=== PATIENT | female | born 1950 ===

== ENCOUNTER 2022-06-16 14:39 | Inpatient (IN) | payer OTHER, SELFPAY ==
--- NOTE | 2022-06-16 16:43 | PC.NURSE ---
Pt arrived to the unit via stretcher from [facility]. Pt stated I haven't slept in two months, I have a concussion , when she was being escorted onto the unit. Pt refused to sign a CV, Dr. Ndiaye signed a 12b for the pt. Pt oriented to the unit, pt sat at the table with her head down and refused to participate with admission assessment/paperwork at this time. The pt went into her bedroom and stated I just want you to leave me alone now . The pt appears to be oriented to self only at this time.
--- NOTE | 2022-06-17 10:28 | HO.PSYADMNOT ---
HPI Date of Service: 06/17/22 Chief Complaint: psychosis hallucinations threatening behavior Sources of Information: patient interviewed and crisis/core team assessment reviewed Additional Sources of Information: Patient is guarded only giving limited information HPI Subjective Notes: [place] Warning and Section 12B Narrative: The patient is a 71-year-old female referred by the O crisis team she had been [facility] which she states she has been in since September. The patient states she had had a long-term hospitalization from May to September on the psychiatric unit in [place]. The patient is unable or unwilling to give a clear psychiatric history. She does state that she has suffered from psychiatric attacks but then will not elaborate. She states antipsychotic medication has not generally been helpful and that she has had significant side effects. She does relate that helpful gave her significant tremors and olanzapine which she took generally at bedtime also was problematic. Details are not known regarding reported admission at [facility]. Patient reportedly had been aggressive threatening and made suicidal statements at respite was then evaluated by the crisis team and referred patient denies that she had had any problematic behavior she is hoping to go back to [facility] and hoping to return to some form of [facility] housing which she had been in before. Reportedly she had been evicted from some form of senior housing prior to the [facility] admission she is unable to give clear details. She reportedly has not been taking medication for the past 2 and half months Past Psychiatric History: Bertha she believes from this psychic attacks. She has been psychiatrically hospitalized in the past was on Haldol and olanzapine reportedly details in response not clear ent states she has a history of anxiety and trauma it appears Medical Evaluation Reviewed: Hospitalist Jammie Knight Patient reportedly has a history of hypertension was on amlodipine hypothyroidism was on levothyroxine denies any current symptoms except for headache [facility] Medical History (Updated 06/17/22 @ 19:45 by Alex Ndiaye MD) Essential (primary) hypertension Hypothyroid Narrative: htn hypothyroidism Family History: unclear Social History: Patient use to work for 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 she states she was living and over 55 housing until she was hospitalized in May she states she has no close supports that she has 1 child Substance History: not known Trauma History: Unable to determine Meds/Allergies Meds Home Medications Medication Instructions Recorded Confirmed Type amlodipine 5 mg tablet 5 mg PO DAILY 06/16/22 06/16/22 History cholecalciferol (vitamin D3) 50 50 mcg PO DAILY 06/16/22 06/16/22 History mcg (2,000 unit) capsule (Vitamin D3) cranberry 500 mg capsule 500 mg PO BID 06/16/22 06/16/22 History diphenhydramine HCl 25 mg capsule 25 mg PO BEDTIME 06/16/22 06/16/22 History (Benadryl) ferrous sulfate 324 mg (65 mg 324 mg PO DAILY 06/16/22 06/16/22 History iron) tablet,delayed release levothyroxine 150 mcg tablet 150 mcg PO DAILY 06/16/22 06/16/22 History lorazepam 0.5 mg tablet 0.5 mg PO BID 06/16/22 06/16/22 History melatonin 5 mg tablet 10 mg PO BEDTIME 06/16/22 06/16/22 History olanzapine 10 mg tablet 10 mg PO BID 06/16/22 06/16/22 History Allergies Allergies Allergy/AdvReac Type Severity Reaction Status Date / Time risperidone AdvReac Intermediate Hypotension Verified 06/16/22 15:00 fluoxetine [From Prozac] AdvReac Agitated Verified 06/16/22 15:00 Mental Status Exam Mental Status Exam Narrative: Patient initially would not talk with this lead technical writer adamantly stating she does not need to be in a psychiatric hospital. Was explained again that she was admitted on a Section 12 B and I did explain spoke with me about could be used in a court hearing patient adamantly denied any thoughts of harm to herself for others she vaguely made a reference to psychiatric intact denied making threats to staff address bed or threats to harm herself denied having commands in her mind telling her to do anything. She does state that she has anxiety and has stated that Ativan could be helpful no coat gross paranoia no threats her mood was flat restricted somewhat anxious denied harm to herself or others insight judgment impaired when asked about why she had been refusing all medication she can not not really explain except that Haldol had given her significant side effects tremor and pain and did states she was open to treatment for hypertension and hypothyroidism Assessment & Plan Assessment & Plan (1) Schizo-affective schizophrenia, chronic condition with acute exacerbation: Status: Acute Code(s): F25.9 - Schizoaffective disorder, unspecified (2) Essential (primary) hypertension: Status: Acute Code(s): I10 - Essential (primary) hypertension (3) Hypothyroid: Status: Acute Code(s): E03.9 - Hypothyroidism, unspecified Plan Patient with reported history of psychosis has been noncompliant with medication reportedly for 2 and half months. Was reportedly threatening to harm herself and others and acting in an aggressive manner. She is admitted on a Section 12 B lorazepam 0.5 mg p.o. q.6h Need additional history clarify recent events assess safety and to need to file for retention and tx order Patient educated on: diagnosis and medication risk/benefits Informed Consent: further education needed Reason for continued inpatient stay Substantial Risk for: harm to self and harm to others Statement Statement: I have reviewed the history and physical and performed a pertinent examination on my patient. No changes have occurred unless specified. Hospitalist consult ordered her restarted amlodipine for hypertension
[2022-06-18 06:00] VITALS: BP 131/88; PULSE 93; RESP 18; TEMP 36.6; O2SAT 96
[2022-06-18] MEDS: amLODIPine Besylate 2.5 MG TABLET PO (10:37)
[2022-06-18] MEDS: LORazepam 0.5 MG TABLET PO ×3 (11:28→21:54)
--- NOTE | 2022-06-18 12:30 | P.PNPSI_ITS ---
Subjective Subjective Date of Service: 06/18/22 Reason For Visit: psychosis hallucinations threatening behavior Subjective Notes: Section 12B Interim History: The nursing staff reported the patient has refused vital signs and she has been seen in the common units. She has refused all her medications, including Zyprexa at night. On interview the patient reported that she had some psychiatric admissions and treatment but she does not need medications. She does not have any insight into her condition. She signed a CV, she states that she doesn't have a psychiatric problem. Mental Status Exam Mental Status Exam Patient Appearance: Appropriate Patient Orientation: Person and Situation Level of Consciousness: Awake and Appropriate Patient Behavior: Guarded, Passive and Suspicious Mood Description: Withdrawn Affect Description: Labile Patient Cognition Impaired: Yes Ability to Follow Directions: Good Speech Pattern: Clear Hallucinations: None Delusions: Paranoid Ideation and Ideas of Reference Thought Process: Illogical and Distracted Thought Content: positive for [place], positive for Poverty of Content and positive for Thought Blocking Judgement: Poor Diagnostics Vital Signs (24Hr): Vital Signs - 24 hr 06/18/22 06:00 Temperature 97.9 F Pulse Rate 93 Respiratory Rate 18 Blood Pressure 131/88 Pulse Oximetry 96 Oxygen Delivery Method Room Air Labs Results: 06/18/22 14:16 Medications Medications Current Medications Acetaminophen (Acetaminophen 325 Mg Tablet) 650 mg PO Q6H PRN PRN Reason: Headache/Pain Mild Scale (1-3) Al Hydroxide/Mg Hydroxide (Magnesium Hydrox/Alum Hydrox 30 Ml Oral.Susp) 30 ml PO Q6H PRN PRN Reason: Heartburn/Nausea Amlodipine Besylate (Amlodipine Besylate 2.5 Mg Tablet) 2.5 mg PO DAILY [facility]; Protocol Last Admin: 06/18/22 10:37 Dose: 2.5 mg Hydroxyzine HCl (Hydroxyzine Hcl 25 Mg Tablet) 25 mg PO Q6H PRN PRN Reason: Anxiety Latanoprost (Latanoprost 0.005 % Ophth [place] 2.5 Ml Drops) 1 drop EYE-BOTH BEDTIME [facility] Last Admin: 06/17/22 21:49 Dose: Not Given Levothyroxine Sodium (Levothyroxine Sodium 50 Mcg Tablet) 50 mcg PO DAILY@0600 [facility] Last Admin: 06/18/22 05:51 Dose: Not Given Lorazepam (Lorazepam 0.5 Mg Tablet) 0.5 mg PO Q8H PRN PRN Reason: Anxiety Last Admin: 06/18/22 11:28 Dose: 0.5 mg Magnesium Hydroxide (Milk Of Magnesia 30 Ml Oral.Susp) 30 ml PO DAILY PRN PRN Reason: Constipation Olanzapine (Olanzapine 2.5 Mg Tablet) 2.5 mg PO BEDTIME [facility] Last Admin: 06/17/22 21:49 Dose: Not Given Allergies Allergies Allergy/AdvReac Type Severity Reaction Status Date / Time risperidone AdvReac Intermediate Hypotension Verified 06/16/22 15:00 fluoxetine [From Prozac] AdvReac Agitated Verified 06/16/22 15:00 Assessment & Plan Assessment & Plan (1) Schizo-affective schizophrenia, chronic condition with acute exacerbation: Status: Acute Code(s): F25.9 - Schizoaffective disorder, unspecified (2) Essential (primary) hypertension: Status: Acute Code(s): I10 - Essential (primary) hypertension (3) Hypothyroid: Status: Acute Code(s): E03.9 - Hypothyroidism, unspecified Plan Patient with reported history of psychosis has been noncompliant with medication reportedly for 2 and half months. Was reportedly threatening to harm herself and others and acting in an aggressive manner. She is admitted on a Section 12 B lorazepam 0.5 mg p.o. q.6h Need additional history clarify recent events assess safety and to need to file for retention and tx order Plan 1. Continue with Zyprexa 2.5 p.o. q.h.s. to target psychosis. 2. Gather collateral information. 3. We will probably is filed for Section 7 and 8 since the patient has a long history of similar presentations that makes her and safe in the community. I will not accept her CV at this moment since she is refusing actively antipsychotics. I spent ___20___ minutes with the patient and/or on the patient floor today, greater than?50% of which was spent counseling/coordinating care. Informed Consent: does not understand Reason for contiued inpatient stay Substantial Risk for: harm to self, harm to others, inability to function, rapid decompensation and med/psych decompensation Time Spent With Patient Time: Total time managing care of this patient today __20__ minutes.
--- NOTE | 2022-06-18 13:03 | P.CONHOSP_ITS ---
History of Present Illness Data of Consult Service Date: 06/18/22 Requesting physician: Alex Ndiaye Primary Care Provider: Unknown Physician HPI Reason for consult: medical H&P 71-year-old female with history of CKD stage 4, history of breast cancer, history of vaginal cancer, hypertension, fibromyalgia, glaucoma, COPD, and history of UTIs admitted to Psychiatry for schizophrenia with psychosis from [facility] ED with consult placed to Medicine for medical H and P. Patient is reporting chronic pain has been ongoing for years exacerbated recently due to stress surrounding homelessness. She is primarily complaining of pain and tightness in the jaw, neck, head, face. She states she has taken oxycodone for this in the past and is requesting this. She states her stomach is upset/dyspepsia due to her stress. She has no other complaints at this time. Reports smoking several natural cigarettes daily with occassional ETOH consumption. No illicit drug use. Review of Systems Review of Systems: General: No fevers, malaise, unintentional weight loss HEENT: No blurred vision, diplopia. No sore throat, nasal congestion, rhinorrhea, sinus pain, ear pain Cardiovascular: No chest pain, palpitations, or leg edema Respiratory: No shortness of breath, wheezing, cough GI: +dyspepsia. No abdominal pain, nausea, vomiting, diarrhea, constipation, melena, hematochezia : No dysuria, hematuria, increased urinary frequency, decreased urinary output MSK: No myalgia, back pain Neuro: No headaches, weakness, paresthesias Skin: No rashes or lesions [facility] Medical History (Updated 06/18/22 @ 13:12 by DANNY Liu) CKD (chronic kidney disease), stage IV Essential (primary) hypertension Fibromyalgia Glaucoma History of breast cancer History of UTI History of vaginal after Hypothyroid Schizoaffective schizophrenia Family History (Updated 06/18/22 @ 13:11 by DANNY Liu) Father MS (myocardial infarction) Mother Lung cancer Smoker Social History Household Members: Other Household Members Other:: Pt currently living at respite Housing: Other Housing Other:: respite Do you presently have visiting nurse or other home services: No Unable to assess alcohol history related to: Refusing to respond Patient Tobacco Use Status: Tobacco use Unknown Use of substances other than those prescribed or required for medical reasons: Unknown Currently Displaying Signs/Symptoms of Drug Intoxication Withdrawal: No Advance Directives: No Advance Directives Information Provided: No Do you have thoughts of harming others: None Do you have a plan to hurt others: No Plan Patient : No : No Poor oral hygiene: No service: No Sexual orientation: Straight/Heterosexual Meds Allergies Allergy/AdvReac Type Severity Reaction Status Date / Time risperidone AdvReac Intermediate Hypotension Verified 06/16/22 15:00 fluoxetine [From Prozac] AdvReac Agitated Verified 06/16/22 15:00 Active Medications: Current Medications Acetaminophen (Acetaminophen 325 Mg Tablet) 650 mg PO Q6H PRN PRN Reason: Headache/Pain Mild Scale (1-3) Al Hydroxide/Mg Hydroxide (Magnesium Hydrox/Alum Hydrox 30 Ml Oral.Susp) 30 ml PO Q6H PRN PRN Reason: Heartburn/Nausea Amlodipine Besylate (Amlodipine Besylate 2.5 Mg Tablet) 2.5 mg PO DAILY [facility]; Protocol Last Admin: 06/18/22 10:37 Dose: 2.5 mg Diphenhydramine HCl (Diphenhydramine Hcl 25 Mg Capsule) 25 mg PO BEDTIME [facility] Ferrous Sulfate (Ferrous Sulfate 324 Mg Tablet.Dr) 324 mg PO DAILY [facility] Gabapentin (Gabapentin 300 Mg Capsule) 300 mg PO BEDTIME [facility] Hydroxyzine HCl (Hydroxyzine Hcl 25 Mg Tablet) 25 mg PO Q6H PRN PRN Reason: Anxiety Latanoprost (Latanoprost 0.005 % Ophth [place] 2.5 Ml Drops) 1 drop EYE-BOTH BEDTIME [facility] Last Admin: 06/17/22 21:49 Dose: Not Given Levothyroxine Sodium (Levothyroxine Sodium 50 Mcg Tablet) 50 mcg PO DAILY@0600 [facility] Last Admin: 06/18/22 05:51 Dose: Not Given Levothyroxine Sodium (Levothyroxine Sodium 150 Mcg Tablet) 150 mcg PO DAILY [facility] Lorazepam (Lorazepam 0.5 Mg Tablet) 0.5 mg PO Q8H PRN PRN Reason: Anxiety Last Admin: 06/18/22 11:28 Dose: 0.5 mg Lorazepam (Lorazepam 0.5 Mg Tablet) 0.5 mg PO BID [facility] Magnesium Hydroxide (Milk Of Magnesia 30 Ml Oral.Susp) 30 ml PO DAILY PRN PRN Reason: Constipation Melatonin (Melatonin 3 Mg Tablet) 9 mg PO BEDTIME [facility] Nicotine Polacrilex (Nicotine Polacrilex 2 Mg Gum) 2 mg BUCCAL Q2H PRN PRN Reason: smoking craving Olanzapine (Olanzapine 2.5 Mg Tablet) 2.5 mg PO BEDTIME [facility] Last Admin: 06/17/22 21:49 Dose: Not Given Home Medications Medication Instructions Recorded Confirmed Last Taken Type amlodipine 5 mg tablet 5 mg PO DAILY 06/16/22 06/16/22 Unknown History cholecalciferol (vitamin D3) 50 50 mcg PO DAILY 06/16/22 06/16/22 Unknown History mcg (2,000 unit) capsule (Vitamin D3) cranberry 500 mg capsule 500 mg PO BID 06/16/22 06/16/22 Unknown History diphenhydramine HCl 25 mg capsule 25 mg PO BEDTIME 06/16/22 06/16/22 Unknown History (Benadryl) ferrous sulfate 324 mg (65 mg 324 mg PO DAILY 06/16/22 06/16/22 Unknown History iron) tablet,delayed release levothyroxine 150 mcg tablet 150 mcg PO DAILY 06/16/22 06/16/22 Unknown History lorazepam 0.5 mg tablet 0.5 mg PO BID 06/16/22 06/16/22 Unknown History melatonin 5 mg tablet 10 mg PO BEDTIME 06/16/22 06/16/22 Unknown History olanzapine 10 mg tablet 10 mg PO BID 06/16/22 06/16/22 Unknown History Physical Exam Vital Signs and Narrative: Vital Signs: Last Vital Signs Temp 97.9 F 06/18/22 06:00 Pulse 93 06/18/22 06:00 Resp 18 06/18/22 06:00 BP 131/88 06/18/22 06:00 Pulse Ox 96 06/18/22 06:00 O2 Del Method 06/18/22 06:00 Patient not agreeing to exam Assessment and Plan (1) Routine medical exam: Status: Acute Plan 71-year-old female with history of CKD stage 4, history of breast cancer, history of vaginal cancer, hypertension, fibromyalgia, glaucoma, COPD, and history of UTIs admitted to Psychiatry for schizophrenia with psychosis from [facility] with consult placed to Medicine for medical H and P. # schizoaffective schizophrenia -plan per Psychiatry # fibromyalgia -reporting recently exacerbated pain in head, neck, jaw -would not recommend narcotics -gabapentin 300 mg at bedtime ordered -Can also try low dose muscle relaxer like tizanidine -ibuprofen or Tylenol as needed # hypertension-controlled -continue amlodipine daily # hypothyroidism -continue levothyroxine 150mcg daily -TSH ordered #Glaucoma -Continue eye drops #COPD - no acute exacerbation -Noted on [facility] records -Albuterol prn #History breast CA, History vaginal CA -No chemotherapy or immunotherapy -Hx radiation -Outpt follow up #History UTIs -Pt asymptomatic #CKD stage 4 -Noted in [facility] record -Check BMP Pt was not agreeing to physical exam. Thank you for allowing me to participate in this consult. Signing off at this time. Please do not hesitate to call for further questions. Time Spent With Patient Time: Total time managing care of this patient today ____ minutes.
--- NOTE | 2022-06-18 13:19 | PC.NURSE ---
Pt. declines influenza vaccine at this time.
--- NOTE | 2022-06-18 13:51 | PC.NURSE ---
Pt. is a smoker. Order for nicotine replacement received. Consult fro OT for smoking cessation ordered.
[2022-06-18] MEDS: Nicotine Polacrilex 2 MG GUM BUCCAL (14:22)
[2022-06-18 14:47] LABS: Anion Gap 14 (12-20); Blood Urea Nitrogen 19 mg/dL (9-16); Calcium 9.6 mg/dL (8.4-10.2); Carbon Dioxide 27 mmol/L (22-29); Chloride 101 mmol/L (96-108); Estimated Glomerular Filt Rate 41; Glucose Random 122 mg/dL (60-115); Potassium 4.6 mmol/L (3.3-5.1); Sodium 137 mmol/L (135-145)
[2022-06-18 15:30] LABS: TSH reflex Free T4 14.62 uIU/mL (0.32-4.0)
[2022-06-18 16:13] LABS: Free T4 (Free Thyroxine) 0.84 ng/dL (0.71-1.85)
[2022-06-18] MEDS: OLANZapine 2.5 MG TABLET PO (21:53)
[2022-06-18] MEDS: Acetaminophen 325 MG TABLET 650 MG PO (21:53)
[2022-06-18 21:54] VITALS: BP 172/72; PULSE 68; RESP 14; TEMP 36.6; O2SAT 96
[2022-06-18] MEDS: Melatonin 3 MG TABLET 9 MG PO (21:54)
[2022-06-18 22:30] VITALS: BP 148/58; PULSE 60; RESP 16; O2SAT 96
[2022-06-19 06:00] VITALS: BP 168/81; PULSE 62; RESP 14; TEMP 36.6; O2SAT 94
[2022-06-19] MEDS: Levothyroxine Sodium 50 MCG TABLET PO (06:08)
[2022-06-19] MEDS: amLODIPine Besylate 2.5 MG TABLET PO (08:08)
[2022-06-19] MEDS: Ferrous Sulfate 324 MG TABLET.DR PO (08:08)
[2022-06-19] MEDS: LORazepam 0.5 MG TABLET PO ×3 (08:09→20:31)
--- NOTE | 2022-06-19 11:33 | HO.PSYCHPN ---
Subjective Subjective Date of Service: 06/19/22 Reason For Visit: psychosis hallucinations threatening behavior Subjective Notes: Conditional Voluntary Interim History: The nursing staff reported the patient took Zyprexa last night. His blood pressure was slightly high but then later on it lowered she complained of headaches and took Tylenol. She was for Motrin instead of Tylenol. We could not collect a urine sample yet she remains guarded stating that which is are controlling her face. He asked for oxycodone and Ativan only. Yesterday she signed a conditional voluntary and she has refused to sign releases. We will be approach today. So far she has been compliant with Zyprexa for 1 day. We will discuss with the patient that 1 of the conditions of discharge is compliance with treatment. On interview, she was worried about her belongings on [facility] and the ED of the other hospital Mental Status Exam Mental Status Exam Patient Appearance: Well Grooomed and Appropriate Patient Orientation: Person and Situation Level of Consciousness: Awake and Appropriate Patient Behavior: Guarded and Passive Mood Description: Withdrawn Affect Description: Constricted Patient Cognition Impaired: Yes Ability to Follow Directions: Good Speech Pattern: Clear Hallucinations: Auditory Delusions: Paranoid Ideation, Ideas of Reference and Bizarre Thought Process: Distracted Thought Content: positive for Disoriented and positive for [place] Judgement: Fair Diagnostics Vital Signs (24Hr): Vital Signs - 24 hr 06/18/22 21:54 06/18/22 22:30 06/19/22 06:00 Temperature 97.9 F 97.9 F Pulse Rate 68 60 62 Respiratory Rate 14 16 14 Blood Pressure 172/72 H 148/58 H 168/81 H Pulse Oximetry 96 96 94 Oxygen Delivery Method Room Air Room Air Room Air Labs Results: 06/18/22 14:16 Labs: Laboratory Results - last 48 hr 06/18/22 14:16 Sodium 137 Potassium 4.6 Chloride 101 Carbon Dioxide 27 Anion Gap 14 BUN 19 H Creatinine 1.29 Estim Creat Clear Calc TNP Estimated GFR 41 Random Glucose 122 H Calcium 9.6 TSH 14.62 H Free T4 0.84 Medications Medications Current Medications Acetaminophen (Acetaminophen 325 Mg Tablet) 650 mg PO Q6H PRN PRN Reason: Headache/Pain Mild Scale (1-3) Last Admin: 06/18/22 21:53 Dose: 650 mg Al Hydroxide/Mg Hydroxide (Magnesium Hydrox/Alum Hydrox 30 Ml Oral.Susp) 30 ml PO Q6H PRN PRN Reason: Heartburn/Nausea Amlodipine Besylate (Amlodipine Besylate 2.5 Mg Tablet) 2.5 mg PO DAILY [facility]; Protocol Last Admin: 06/19/22 08:08 Dose: 2.5 mg Diphenhydramine HCl (Diphenhydramine Hcl 25 Mg Capsule) 25 mg PO BEDTIME [facility] Last Admin: 06/18/22 22:06 Dose: Not Given Ferrous Sulfate (Ferrous Sulfate 324 Mg Tablet.Dr) 324 mg PO DAILY [facility] Last Admin: 06/19/22 08:08 Dose: 324 mg Gabapentin (Gabapentin 300 Mg Capsule) 300 mg PO BEDTIME [facility] Last Admin: 06/18/22 22:06 Dose: Not Given Hydroxyzine HCl (Hydroxyzine Hcl 25 Mg Tablet) 25 mg PO Q6H PRN PRN Reason: Anxiety Latanoprost (Latanoprost 0.005 % Ophth [place] 2.5 Ml Drops) 1 drop EYE-BOTH BEDTIME [facility] Last Admin: 06/18/22 22:06 Dose: Not Given Levothyroxine Sodium (Levothyroxine Sodium 50 Mcg Tablet) 50 mcg PO DAILY@0600 [facility] Last Admin: 06/19/22 06:08 Dose: 50 mcg Levothyroxine Sodium (Levothyroxine Sodium 150 Mcg Tablet) 150 mcg PO DAILY [facility] Lorazepam (Lorazepam 0.5 Mg Tablet) 0.5 mg PO Q8H PRN PRN Reason: Anxiety Last Admin: 06/18/22 21:54 Dose: 0.5 mg Lorazepam (Lorazepam 0.5 Mg Tablet) 0.5 mg PO BID [facility] Last Admin: 06/19/22 08:09 Dose: 0.5 mg Magnesium Hydroxide (Milk Of Magnesia 30 Ml Oral.Susp) 30 ml PO DAILY PRN PRN Reason: Constipation Melatonin (Melatonin 3 Mg Tablet) 9 mg PO BEDTIME [facility] Last Admin: 06/18/22 21:54 Dose: 9 mg Nicotine Polacrilex (Nicotine Polacrilex 2 Mg Gum) 2 mg BUCCAL Q2H PRN PRN Reason: smoking craving Last Admin: 06/18/22 14:22 Dose: 2 mg Olanzapine (Olanzapine 2.5 Mg Tablet) 2.5 mg PO BEDTIME [facility] Last Admin: 06/18/22 21:53 Dose: 2.5 mg Allergies Allergies Allergy/AdvReac Type Severity Reaction Status Date / Time risperidone AdvReac Intermediate Hypotension Verified 06/16/22 15:00 fluoxetine [From Prozac] AdvReac Agitated Verified 06/16/22 15:00 Assessment & Plan Assessment & Plan (1) Schizo-affective schizophrenia, chronic condition with acute exacerbation: Status: Acute Code(s): F25.9 - Schizoaffective disorder, unspecified (2) Essential (primary) hypertension: Status: Acute Code(s): I10 - Essential (primary) hypertension (3) Hypothyroid: Status: Acute Code(s): E03.9 - Hypothyroidism, unspecified Plan Patient with reported history of psychosis has been noncompliant with medication reportedly for 2 and half months. Was reportedly threatening to harm herself and others and acting in an aggressive manner. She is admitted on a Section 12 B lorazepam 0.5 mg p.o. q.6h Need additional history clarify recent events assess safety and to need to file for retention and tx order Plan 1. Continue with Zyprexa 2.5 p.o. q.h.s. to target psychosis. 2. Gather collateral information. 3. We will probably is filed for Section 7 and 8 since the patient has a long history of similar presentations that makes her and safe in the community. I will not accept her CV if she refuses antipsychotics. I spent minutes with the patient and/or on the patient floor today, greater than?50% of which was spent counseling/coordinating care. Reason for contiued inpatient stay Substantial Risk for: inability to function, rapid decompensation and med/psych decompensation Time Spent With Patient Time: Total time managing care of this patient today __20__ minutes.
[2022-06-19 18:00] VITALS: BP 133/60; PULSE 60; RESP 16; TEMP 36.5; O2SAT 95
[2022-06-19] MEDS: Latanoprost 0.005 % Ophth Sol 2.5 ML DROPS 1 DROP EYE-BOTH (20:29)
[2022-06-19] MEDS: Melatonin 3 MG TABLET 9 MG PO (20:31)
[2022-06-19] MEDS: OLANZapine 2.5 MG TABLET PO (20:32)
[2022-06-20] MEDS: Levothyroxine Sodium 50 MCG TABLET PO (06:10)
[2022-06-20 07:30] VITALS: BP 150/84; PULSE 96; RESP 17; TEMP 36.2; O2SAT 97
[2022-06-20] MEDS: LORazepam 0.5 MG TABLET PO ×2 (09:48→21:19)
[2022-06-20] MEDS: Ferrous Sulfate 324 MG TABLET.DR PO (09:48)
[2022-06-20] MEDS: amLODIPine Besylate 2.5 MG TABLET PO (09:48)
--- NOTE | 2022-06-20 10:34 | HO.PSYCHPN ---
Subjective Subjective Date of Service: 06/20/22 Reason For Visit: psychosis hallucinations threatening behavior Subjective Notes: Conditional Voluntary Interim History: The nursing staff reported the patient took Zyprexa last night. The she had been seen in the common areas walking, paranoid and internally preoccupied. The occupational therapist reported that she score 5.0 on the Chris test and 16/30 on the [place]. The social media strategist approached yesterday and she refused to sign releases since she was paranoid. She is worried about missing her clothes and her belongings that are at respite. On interview I explained the patient that in order to discharge her and make this admission short, we will require compliance with antipsychotics. Mental Status Exam Mental Status Exam Patient Appearance: Well Grooomed Patient Orientation: Person and Situation Level of Consciousness: Awake and Appropriate Patient Behavior: Guarded and Passive Mood Description: Suspicious and Withdrawn Affect Description: Constricted Patient Cognition Impaired: Yes Ability to Follow Directions: Good Speech Pattern: Clear and Long Pauses Hallucinations: None Delusions: Paranoid Ideation and Ideas of Reference Thought Process: Distracted and Evasive Thought Content: positive for [place] and positive for [place] Judgement: Poor Diagnostics Vital Signs (24Hr): Vital Signs - 24 hr 06/19/22 18:00 Temperature 97.7 F Pulse Rate 60 Respiratory Rate 16 Blood Pressure 133/60 Pulse Oximetry 95 Oxygen Delivery Method Room Air Labs Results: 06/18/22 14:16 Labs: Laboratory Results - last 48 hr 06/18/22 14:16 Sodium 137 Potassium 4.6 Chloride 101 Carbon Dioxide 27 Anion Gap 14 BUN 19 H Creatinine 1.29 Estim Creat Clear Calc TNP Estimated GFR 41 Random Glucose 122 H Calcium 9.6 TSH 14.62 H Free T4 0.84 Medications Medications Current Medications Acetaminophen (Acetaminophen 325 Mg Tablet) 650 mg PO Q6H PRN PRN Reason: Headache/Pain Mild Scale (1-3) Last Admin: 06/18/22 21:53 Dose: 650 mg Al Hydroxide/Mg Hydroxide (Magnesium Hydrox/Alum Hydrox 30 Ml Oral.Susp) 30 ml PO Q6H PRN PRN Reason: Heartburn/Nausea Amlodipine Besylate (Amlodipine Besylate 2.5 Mg Tablet) 2.5 mg PO DAILY [facility]; Protocol Last Admin: 06/20/22 09:48 Dose: 2.5 mg Diphenhydramine HCl (Diphenhydramine Hcl 25 Mg Capsule) 25 mg PO BEDTIME [facility] Last Admin: 06/19/22 20:35 Dose: Not Given Ferrous Sulfate (Ferrous Sulfate 324 Mg Tablet.Dr) 324 mg PO DAILY [facility] Last Admin: 06/20/22 09:48 Dose: 324 mg Gabapentin (Gabapentin 300 Mg Capsule) 300 mg PO BEDTIME [facility] Last Admin: 06/19/22 20:34 Dose: Not Given Hydroxyzine HCl (Hydroxyzine Hcl 25 Mg Tablet) 25 mg PO Q6H PRN PRN Reason: Anxiety Latanoprost (Latanoprost 0.005 % Ophth [place] 2.5 Ml Drops) 1 drop EYE-BOTH BEDTIME [facility] Last Admin: 06/19/22 20:29 Dose: 1 drop Levothyroxine Sodium (Levothyroxine Sodium 150 Mcg Tablet) 150 mcg PO DAILY [facility] Last Admin: 06/20/22 09:48 Dose: Not Given Lorazepam (Lorazepam 0.5 Mg Tablet) 0.5 mg PO Q8H PRN PRN Reason: Anxiety Last Admin: 06/19/22 15:22 Dose: 0.5 mg Lorazepam (Lorazepam 0.5 Mg Tablet) 0.5 mg PO BID [facility] Last Admin: 06/20/22 09:48 Dose: 0.5 mg Magnesium Hydroxide (Milk Of Magnesia 30 Ml Oral.Susp) 30 ml PO DAILY PRN PRN Reason: Constipation Melatonin (Melatonin 3 Mg Tablet) 9 mg PO BEDTIME [facility] Last Admin: 06/19/22 20:31 Dose: 9 mg Nicotine Polacrilex (Nicotine Polacrilex 2 Mg Gum) 2 mg BUCCAL Q2H PRN PRN Reason: smoking craving Last Admin: 06/18/22 14:22 Dose: 2 mg Olanzapine (Olanzapine 2.5 Mg Tablet) 2.5 mg PO BEDTIME [facility] Last Admin: 06/19/22 20:32 Dose: 2.5 mg Allergies Allergies Allergy/AdvReac Type Severity Reaction Status Date / Time risperidone AdvReac Intermediate Hypotension Verified 06/16/22 15:00 fluoxetine [From Prozac] AdvReac Agitated Verified 06/16/22 15:00 Assessment & Plan Assessment & Plan (1) Schizo-affective schizophrenia, chronic condition with acute exacerbation: Status: Acute Code(s): F25.9 - Schizoaffective disorder, unspecified (2) Essential (primary) hypertension: Status: Acute Code(s): I10 - Essential (primary) hypertension (3) Hypothyroid: Status: Acute Code(s): E03.9 - Hypothyroidism, unspecified Plan Patient with reported history of psychosis has been noncompliant with medication reportedly for 2 and half months. Was reportedly threatening to harm herself and others and acting in an aggressive manner. She is admitted on a Section 12 B lorazepam 0.5 mg p.o. q.6h Need additional history clarify recent events assess safety and to need to file for retention and tx order Plan 1. Continue with Zyprexa 2.5 p.o. q.h.s. to target psychosis. 2. Gather collateral information. 3. We will probably is filed for Section 7 and 8 since the patient has a long history of similar presentations that makes her and safe in the community. I will not accept her CV if she refuses antipsychotics. So far, she has been compliant with Zyprexa I spent ___20___ minutes with the patient and/or on the patient floor today, greater than?50% of which was spent counseling/coordinating care. Reason for contiued inpatient stay Substantial Risk for: inability to function, rapid decompensation and med/psych decompensation Time Spent With Patient Time: Total time managing care of this patient today _20___ minutes.
[2022-06-20] MEDS: Acetaminophen 325 MG TABLET 650 MG PO (11:27)
[2022-06-20 11:42] LABS: Appearance Urine Cloudy; Color Urine Yellow; Glucose Urine UA Negative (Negative); Leukocyte Esterase Urine Large (3+) (Negative); Nitrite Urine Negative (Negative); UMIC TRIGGER UACC YES; Urine Blood Trace (Negative); Urine Ketones Negative (Negative); Urine Protein 30 (1+) mg/dL (Neg-Trace)
[2022-06-20 12:01] LABS: Bacteria Urine 4+ (None Seen); Hyaline Casts Urine 0-2 /LPF (0-2); Squamous Epithelial Cell Urine 0-2 /HPF (0-2); UACC Culture Trigger YES; WBC Urine >50 /HPF (0-5)
[2022-06-20 18:00] VITALS: BP 143/78; PULSE 80; RESP 16; TEMP 36.3; O2SAT 97
[2022-06-20] MEDS: Melatonin 3 MG TABLET 9 MG PO (21:19)
[2022-06-20] MEDS: OLANZapine 2.5 MG TABLET PO (21:19)
[2022-06-20] MEDS: Latanoprost 0.005 % Ophth Sol 2.5 ML DROPS 1 DROP EYE-BOTH (21:25)
[2022-06-21 06:00] VITALS: BP 114/81; PULSE 81; RESP 18; TEMP 36.8; O2SAT 97
[2022-06-21] MEDS: amLODIPine Besylate 2.5 MG TABLET PO (09:51)
[2022-06-21] MEDS: LORazepam 0.5 MG TABLET PO ×3 (09:51→21:19)
[2022-06-21] MEDS: Ferrous Sulfate 324 MG TABLET.DR PO (09:51)
[2022-06-21] MEDS: Levothyroxine Sodium 150 MCG TABLET PO (09:51)
--- NOTE | 2022-06-21 14:41 | HO.PSYCHPN ---
Subjective Subjective Date of Service: 06/21/22 Reason For Visit: psychosis hallucinations threatening behavior Subjective Notes: Conditional Voluntary Interim History: Pt reports she is anxious because someone was has stolen her identity. She reports medications here are not what they say they are. Pt staring at wall, suspicious. Pt denies SI/HI. Medication Compliance: Yes Side effects from medications: No Mental Status Exam Mental Status Exam Narrative: Appearance: casually groomed, fair hygiene, in NAD Behavior: guarded Psychomotor: some retardation in that she is staring at wall Speech: mostly clear, some delayed in response, spontaneous TP: tangential TC: paranoia about her identity being stolen, and medication here not the ones Mood: good Affect: guarded, and constricted AH/VH: denies but appears internally preoccupied Delusions: paranoid delusions Insight/judgment: poor x 2. Memory/cog: alert, oriented to place, not situation Diagnostics Vital Signs (24Hr): Vital Signs - 24 hr 06/20/22 18:00 06/21/22 06:00 Temperature 97.3 F 98.2 F Pulse Rate 80 81 Respiratory Rate 16 18 Blood Pressure 143/78 H 114/81 Pulse Oximetry 97 97 Oxygen Delivery Method Room Air Room Air Labs Results: 06/18/22 14:16 Labs: Laboratory Results - last 48 hr 06/20/22 11:00 Urine Color Yellow Urine Appearance Cloudy Urine pH 7.0 Ur Specific [place] 1.010 Urine Protein 30 (1+) H Urine Glucose (UA) Negative Urine Ketones Negative Urine Blood Trace H Urine Nitrite Negative Ur Leukocyte Esterase Large (3+) H Urine RBC 11-20 H Urine WBC >50 H Ur Squamous Epith Cells 0-2 Urine Bacteria 4+ Hyaline Casts 0-2 Medications Medications Current Medications Acetaminophen (Acetaminophen 325 Mg Tablet) 650 mg PO Q6H PRN PRN Reason: Headache/Pain Mild Scale (1-3) Last Admin: 06/20/22 11:27 Dose: 650 mg Al Hydroxide/Mg Hydroxide (Magnesium Hydrox/Alum Hydrox 30 Ml Oral.Susp) 30 ml PO Q6H PRN PRN Reason: Heartburn/Nausea Amlodipine Besylate (Amlodipine Besylate 2.5 Mg Tablet) 2.5 mg PO DAILY [facility]; Protocol Last Admin: 06/21/22 09:51 Dose: 2.5 mg Diphenhydramine HCl (Diphenhydramine Hcl 25 Mg Capsule) 25 mg PO BEDTIME [facility] Last Admin: 06/20/22 21:19 Dose: Not Given Ferrous Sulfate (Ferrous Sulfate 324 Mg Tablet.Dr) 324 mg PO DAILY [facility] Last Admin: 06/21/22 09:51 Dose: 324 mg Gabapentin (Gabapentin 300 Mg Capsule) 300 mg PO BEDTIME [facility] Last Admin: 06/20/22 21:18 Dose: Not Given Hydroxyzine HCl (Hydroxyzine Hcl 25 Mg Tablet) 25 mg PO Q6H PRN PRN Reason: Anxiety Latanoprost (Latanoprost 0.005 % Ophth [place] 2.5 Ml Drops) 1 drop EYE-BOTH BEDTIME [facility] Last Admin: 06/20/22 21:25 Dose: 1 drop Levothyroxine Sodium (Levothyroxine Sodium 150 Mcg Tablet) 150 mcg PO DAILY [facility] Last Admin: 06/21/22 09:51 Dose: 150 mcg Lorazepam (Lorazepam 0.5 Mg Tablet) 0.5 mg PO Q8H PRN PRN Reason: Anxiety Last Admin: 06/19/22 15:22 Dose: 0.5 mg Lorazepam (Lorazepam 0.5 Mg Tablet) 0.5 mg PO BID [facility] Last Admin: 06/21/22 09:51 Dose: 0.5 mg Magnesium Hydroxide (Milk Of Magnesia 30 Ml Oral.Susp) 30 ml PO DAILY PRN PRN Reason: Constipation Melatonin (Melatonin 3 Mg Tablet) 9 mg PO BEDTIME [facility] Last Admin: 06/20/22 21:19 Dose: 9 mg Nicotine (Nicotine 7 Mg Patch.Td24) 7 mg TRANSDERMA DAILY [facility] Nicotine Polacrilex (Nicotine Polacrilex 2 Mg Gum) 2 mg BUCCAL Q2H PRN PRN Reason: smoking craving Last Admin: 06/18/22 14:22 Dose: 2 mg Olanzapine (Olanzapine 2.5 Mg Tablet) 2.5 mg PO BEDTIME [facility] Last Admin: 06/20/22 21:19 Dose: 2.5 mg Allergies Allergies Allergy/AdvReac Type Severity Reaction Status Date / Time risperidone AdvReac Intermediate Hypotension Verified 06/16/22 15:00 fluoxetine [From Prozac] AdvReac Agitated Verified 06/16/22 15:00 Assessment & Plan Assessment & Plan (1) Schizo-affective schizophrenia, chronic condition with acute exacerbation: Status: Acute Code(s): F25.9 - Schizoaffective disorder, unspecified (2) Essential (primary) hypertension: Status: Acute Code(s): I10 - Essential (primary) hypertension (3) Hypothyroid: Status: Acute Code(s): E03.9 - Hypothyroidism, unspecified Plan Patient with reported history of psychosis has been noncompliant with medication reportedly for 2 and half months. Was reportedly threatening to harm herself and others and acting in an aggressive manner. She is admitted on a Section 12 B lorazepam 0.5 mg p.o. q.6h Need additional history clarify recent events assess safety and to need to file for retention and tx order Plan 1. Continue with Zyprexa 2.5 p.o. q.h.s. to target psychosis. 2. Gather collateral information. 3. We will probably is filed for Section 7 and 8 since the patient has a long history of similar presentations that makes her and safe in the community. I will not accept her CV if she refuses antipsychotics. So far, she has been compliant with Zyprexa 06/21- increase olanzapine to 5mg po qhs. I spent minutes with the patient and/or on the patient floor today, greater than?50% of which was spent counseling/coordinating care. Reason for contiued inpatient stay Substantial Risk for: inability to function Time Spent With Patient Time: Total time managing care of this patient today ____ minutes.
[2022-06-21] MEDS: OLANZapine 5 MG TABLET PO (21:17)
[2022-06-21] MEDS: Acetaminophen 325 MG TABLET 650 MG PO (21:17)
[2022-06-21] MEDS: Melatonin 3 MG TABLET 9 MG PO (21:17)
[2022-06-21] MEDS: Latanoprost 0.005 % Ophth Sol 2.5 ML DROPS 1 DROP EYE-BOTH (21:24)
[2022-06-22 08:00] VITALS: BP 144/67; PULSE 84; RESP 16; TEMP 36.9; O2SAT 94
[2022-06-22] MEDS: amLODIPine Besylate 2.5 MG TABLET PO (11:15)
[2022-06-22] MEDS: LORazepam 0.5 MG TABLET PO ×2 (11:15→20:46)
[2022-06-22] MEDS: Ferrous Sulfate 324 MG TABLET.DR PO (11:15)
[2022-06-22] MEDS: Levothyroxine Sodium 150 MCG TABLET PO (11:15)
--- NOTE | 2022-06-22 11:24 | HO.PSYCHPN ---
Subjective Subjective Date of Service: 06/22/22 Reason For Visit: psychosis hallucinations threatening behavior Subjective Notes: Conditional Voluntary Interim History: Pt continues to present as paranoid. She also asks staff multiple times to let her check belonging in lost section as she thinks someone took her belonging. She is suspicious about the medications given in the hospital, does not think they are real. She did take the olanzapine and ativan. Medication Compliance: Intermittent Side effects from medications: No Review of Systems Review of Systems General: No fevers, malaise, unintentional weight loss HEENT: No blurred vision, diplopia. No sore throat, nasal congestion, rhinorrhea, sinus pain, ear pain Cardiovascular: No chest pain, palpitations, or leg edema Respiratory: No shortness of breath, wheezing, cough GI: +dyspepsia. No abdominal pain, nausea, vomiting, diarrhea, constipation, melena, hematochezia : No dysuria, hematuria, increased urinary frequency, decreased urinary output MSK: No myalgia, back pain Neuro: No headaches, weakness, paresthesias Skin: No rashes or lesions Mental Status Exam Mental Status Exam Narrative: Appearance: casually groomed, fair hygiene, in NAD Behavior: guarded Psychomotor: some retardation in that she is staring at wall Speech: mostly clear, some delayed in response, spontaneous TP: tangential TC: paranoia about her identity being stolen, and medication here not the ones Mood: good Affect: guarded, and constricted AH/VH: denies but appears internally preoccupied Delusions: paranoid delusions Insight/judgment: poor x 2. Memory/cog: alert, oriented to place, not situation Diagnostics Vital Signs (24Hr): Vital Signs - 24 hr 06/22/22 08:00 06/22/22 18:00 Temperature 98.4 F 98.4 F Pulse Rate 84 70 Respiratory Rate 16 18 Blood Pressure 144/67 H 141/70 H Pulse Oximetry 94 95 Oxygen Delivery Method Room Air Room Air Labs Results: 06/18/22 14:16 Medications Medications Current Medications Acetaminophen (Acetaminophen 325 Mg Tablet) 650 mg PO Q6H PRN PRN Reason: Headache/Pain Mild Scale (1-3) Last Admin: 06/21/22 21:17 Dose: 650 mg Al Hydroxide/Mg Hydroxide (Magnesium Hydrox/Alum Hydrox 30 Ml Oral.Susp) 30 ml PO Q6H PRN PRN Reason: Heartburn/Nausea Amlodipine Besylate (Amlodipine Besylate 2.5 Mg Tablet) 2.5 mg PO DAILY [facility]; Protocol Last Admin: 06/22/22 11:15 Dose: 2.5 mg Diphenhydramine HCl (Diphenhydramine Hcl 25 Mg Capsule) 25 mg PO BEDTIME [facility] Last Admin: 06/22/22 20:45 Dose: 25 mg Ferrous Sulfate (Ferrous Sulfate 324 Mg Tablet.Dr) 324 mg PO DAILY [facility] Last Admin: 06/22/22 11:15 Dose: 324 mg Gabapentin (Gabapentin 300 Mg Capsule) 300 mg PO BEDTIME [facility] Last Admin: 06/22/22 20:49 Dose: Not Given Hydroxyzine HCl (Hydroxyzine Hcl 25 Mg Tablet) 25 mg PO Q6H PRN PRN Reason: Anxiety Latanoprost (Latanoprost 0.005 % Ophth [place] 2.5 Ml Drops) 1 drop EYE-BOTH BEDTIME [facility] Last Admin: 06/22/22 20:48 Dose: 1 drop Levothyroxine Sodium (Levothyroxine Sodium 150 Mcg Tablet) 150 mcg PO DAILY [facility] Last Admin: 06/22/22 11:15 Dose: 150 mcg Lorazepam (Lorazepam 0.5 Mg Tablet) 0.5 mg PO BID [facility] Last Admin: 06/22/22 20:46 Dose: 0.5 mg Magnesium Hydroxide (Milk Of Magnesia 30 Ml Oral.Susp) 30 ml PO DAILY PRN PRN Reason: Constipation Melatonin (Melatonin 3 Mg Tablet) 9 mg PO BEDTIME [facility] Last Admin: 06/22/22 20:45 Dose: 9 mg Nicotine (Nicotine 7 Mg Patch.Td24) 7 mg TRANSDERMA DAILY [facility] Last Admin: 06/22/22 18:11 Dose: Not Given Nicotine Polacrilex (Nicotine Polacrilex 2 Mg Gum) 2 mg BUCCAL Q2H PRN PRN Reason: smoking craving Last Admin: 06/18/22 14:22 Dose: 2 mg Olanzapine (Olanzapine 5 Mg Tablet) 5 mg PO BEDTIME [facility] Last Admin: 06/22/22 20:46 Dose: 5 mg Allergies Allergies Allergy/AdvReac Type Severity Reaction Status Date / Time risperidone AdvReac Intermediate Hypotension Verified 06/16/22 15:00 fluoxetine [From Prozac] AdvReac Agitated Verified 06/16/22 15:00 Assessment & Plan Assessment & Plan (1) Schizo-affective schizophrenia, chronic condition with acute exacerbation: Status: Acute Code(s): F25.9 - Schizoaffective disorder, unspecified (2) Essential (primary) hypertension: Status: Acute Code(s): I10 - Essential (primary) hypertension (3) Hypothyroid: Status: Acute Code(s): E03.9 - Hypothyroidism, unspecified Plan Patient with reported history of psychosis has been noncompliant with medication reportedly for 2 and half months. Was reportedly threatening to harm herself and others and acting in an aggressive manner. She is admitted on a Section 12 B lorazepam 0.5 mg p.o. q.6h Need additional history clarify recent events assess safety and to need to file for retention and tx order Plan 1. Continue with Zyprexa 2.5 p.o. q.h.s. to target psychosis. 2. Gather collateral information. 3. We will probably is filed for Section 7 and 8 since the patient has a long history of similar presentations that makes her and safe in the community. I will not accept her CV if she refuses antipsychotics. So far, she has been compliant with Zyprexa 06/21- increase olanzapine to 5mg po qhs. 06/22 may increase olanzapine to 10mg po qhs. monitor over sedation orth hypotension. I spent minutes with the patient and/or on the patient floor today, greater than?50% of which was spent counseling/coordinating care. Reason for contiued inpatient stay Substantial Risk for: harm to others and inability to function Time Spent With Patient Time: Total time managing care of this patient today ____ minutes.
[2022-06-22 18:00] VITALS: BP 141/70; PULSE 70; RESP 18; TEMP 36.9; O2SAT 95
[2022-06-22] MEDS: diphenhydrAMINE HCL 25 MG CAPSULE PO (20:45)
[2022-06-22] MEDS: Melatonin 3 MG TABLET 9 MG PO (20:45)
[2022-06-22] MEDS: OLANZapine 5 MG TABLET PO (20:46)
[2022-06-22] MEDS: Latanoprost 0.005 % Ophth Sol 2.5 ML DROPS 1 DROP EYE-BOTH (20:48)
[2022-06-23 06:00] VITALS: BP 154/82; PULSE 74; RESP 16; TEMP 35.9; O2SAT 98
[2022-06-23] MEDS: Nicotine 7 MG PATCH.TD24 TRANSDERMA (08:56)
[2022-06-23] MEDS: LORazepam 0.5 MG TABLET PO ×2 (09:26→20:05)
[2022-06-23] MEDS: Ferrous Sulfate 324 MG TABLET.DR PO (09:26)
[2022-06-23] MEDS: Levothyroxine Sodium 150 MCG TABLET PO (09:26)
[2022-06-23] MEDS: amLODIPine Besylate 2.5 MG TABLET PO (09:27)
--- NOTE | 2022-06-23 17:09 | P.PNPSI_ITS ---
Subjective Subjective Date of Service: 06/23/22 Reason For Visit: psychosis hallucinations threatening behavior Diagnostics Vital Signs (24Hr): Vital Signs - 24 hr 06/22/22 18:00 06/23/22 06:00 Temperature 98.4 F 96.7 F L Pulse Rate 70 74 Respiratory Rate 18 16 Blood Pressure 141/70 H 154/82 H Pulse Oximetry 95 98 Oxygen Delivery Method Room Air Room Air Labs Results: 06/18/22 14:16 Medications Medications Current Medications Acetaminophen (Acetaminophen 325 Mg Tablet) 650 mg PO Q6H PRN PRN Reason: Headache/Pain Mild Scale (1-3) Last Admin: 06/21/22 21:17 Dose: 650 mg Al Hydroxide/Mg Hydroxide (Magnesium Hydrox/Alum Hydrox 30 Ml Oral.Susp) 30 ml PO Q6H PRN PRN Reason: Heartburn/Nausea Amlodipine Besylate (Amlodipine Besylate 2.5 Mg Tablet) 2.5 mg PO DAILY [facility]; Protocol Last Admin: 06/23/22 09:27 Dose: 2.5 mg Ferrous Sulfate (Ferrous Sulfate 324 Mg Tablet.) 324 mg PO DAILY [facility] Last Admin: 06/23/22 09:26 Dose: 324 mg Gabapentin (Gabapentin 300 Mg Capsule) 300 mg PO BEDTIME [facility] Last Admin: 06/22/22 20:49 Dose: Not Given Hydroxyzine HCl (Hydroxyzine Hcl 25 Mg Tablet) 25 mg PO Q6H PRN PRN Reason: Anxiety Latanoprost (Latanoprost 0.005 % Ophth [place] 2.5 Ml Drops) 1 drop EYE-BOTH BEDTIME [facility] Last Admin: 06/22/22 20:48 Dose: 1 drop Levothyroxine Sodium (Levothyroxine Sodium 150 Mcg Tablet) 150 mcg PO DAILY [facility] Last Admin: 06/23/22 09:26 Dose: 150 mcg Lorazepam (Lorazepam 0.5 Mg Tablet) 0.5 mg PO BID [facility] Last Admin: 06/23/22 09:26 Dose: 0.5 mg Magnesium Hydroxide (Milk Of Magnesia 30 Ml Oral.Susp) 30 ml PO DAILY PRN PRN Reason: Constipation Melatonin (Melatonin 3 Mg Tablet) 9 mg PO BEDTIME [facility] Last Admin: 06/22/22 20:45 Dose: 9 mg Nicotine (Nicotine 7 Mg Patch.Td24) 7 mg TRANSDERMA DAILY [facility] Last Admin: 06/23/22 08:56 Dose: 7 mg Nicotine Polacrilex (Nicotine Polacrilex 2 Mg Gum) 2 mg BUCCAL Q2H PRN PRN Reason: smoking craving Last Admin: 06/18/22 14:22 Dose: 2 mg Olanzapine (Olanzapine 7.5 Mg Tablet) 7.5 mg PO BEDTIME [facility] Allergies Allergies Allergy/AdvReac Type Severity Reaction Status Date / Time risperidone AdvReac Intermediate Hypotension Verified 06/16/22 15:00 fluoxetine [From Prozac] AdvReac Agitated Verified 06/16/22 15:00 Assessment & Plan Assessment & Plan (1) Schizo-affective schizophrenia, chronic condition with acute exacerbation: Status: Acute Code(s): F25.9 - Schizoaffective disorder, unspecified (2) Essential (primary) hypertension: Status: Acute Code(s): I10 - Essential (primary) hypertension (3) Hypothyroid: Status: Acute Code(s): E03.9 - Hypothyroidism, unspecified Plan Patient with reported history of psychosis has been noncompliant with medication reportedly for 2 and half months. Was reportedly threatening to harm herself and others and acting in an aggressive manner. She is admitted on a Section 12 B lorazepam 0.5 mg p.o. q.6h Need additional history clarify recent events assess safety and to need to file for retention and tx order Plan 1. Continue with Zyprexa 2.5 p.o. q.h.s. to target psychosis. 2. Gather collateral information. 3. We will probably is filed for Section 7 and 8 since the patient has a long history of similar presentations that makes her and safe in the community. I will not accept her CV if she refuses antipsychotics. So far, she has been compliant with Zyprexa 06/21- increase olanzapine to 5mg po qhs. 06/22 may increase olanzapine to 10mg po qhs. monitor over sedation orth hypotension. I spent minutes with the patient and/or on the patient floor today, greater than?50% of which was spent counseling/coordinating care. Time Spent With Patient Time: Total time managing care of this patient today ____ minutes.
--- NOTE | 2022-06-23 18:48 | HO.PSYCHPN ---
Subjective Subjective Date of Service: 06/23/22 Reason For Visit: psychosis hallucinations threatening behavior Interim History: lying in bed, alert; guarded but not uncooperative. SYs she's ok and denies any worries. REfuses Gabapentin saying she used to be on it longago, but has not taken it in decades. staff report eating/sleeping and taking meds other than gabapentin Mental Status Exam Mental Status Exam Narrative: Appearance: casually groomed, fair hygiene, in NAD Behavior: guarded Psychomotor: some retardation in that she is staring at wall Speech: mostly clear, some delayed in response, spontaneous TP: tangential TC: paranoia about her identity being stolen, and medication here not the ones Mood: good Affect: guarded, and constricted AH/VH: denies but appears internally preoccupied Delusions: paranoid delusions Insight/judgment: poor x 2. Memory/cog: alert, oriented to place, not situation Diagnostics Vital Signs (24Hr): Vital Signs - 24 hr 06/23/22 06:00 Temperature 96.7 F L Pulse Rate 74 Respiratory Rate 16 Blood Pressure 154/82 H Pulse Oximetry 98 Oxygen Delivery Method Room Air Labs Results: 06/18/22 14:16 Medications Medications Current Medications Acetaminophen (Acetaminophen 325 Mg Tablet) 650 mg PO Q6H PRN PRN Reason: Headache/Pain Mild Scale (1-3) Last Admin: 06/21/22 21:17 Dose: 650 mg Al Hydroxide/Mg Hydroxide (Magnesium Hydrox/Alum Hydrox 30 Ml Oral.Susp) 30 ml PO Q6H PRN PRN Reason: Heartburn/Nausea Amlodipine Besylate (Amlodipine Besylate 2.5 Mg Tablet) 2.5 mg PO DAILY [facility]; Protocol Last Admin: 06/23/22 09:27 Dose: 2.5 mg Ferrous Sulfate (Ferrous Sulfate 324 Mg Tablet.) 324 mg PO DAILY [facility] Last Admin: 06/23/22 09:26 Dose: 324 mg Gabapentin (Gabapentin 300 Mg Capsule) 300 mg PO BEDTIME [facility] Last Admin: 06/22/22 20:49 Dose: Not Given Hydroxyzine HCl (Hydroxyzine Hcl 25 Mg Tablet) 25 mg PO Q6H PRN PRN Reason: Anxiety Latanoprost (Latanoprost 0.005 % Ophth [place] 2.5 Ml Drops) 1 drop EYE-BOTH BEDTIME [facility] Last Admin: 06/22/22 20:48 Dose: 1 drop Levothyroxine Sodium (Levothyroxine Sodium 150 Mcg Tablet) 150 mcg PO DAILY [facility] Last Admin: 06/23/22 09:26 Dose: 150 mcg Lorazepam (Lorazepam 0.5 Mg Tablet) 0.5 mg PO BID [facility] Last Admin: 06/23/22 09:26 Dose: 0.5 mg Magnesium Hydroxide (Milk Of Magnesia 30 Ml Oral.Susp) 30 ml PO DAILY PRN PRN Reason: Constipation Melatonin (Melatonin 3 Mg Tablet) 9 mg PO BEDTIME [facility] Last Admin: 06/22/22 20:45 Dose: 9 mg Nicotine (Nicotine 7 Mg Patch.Td24) 7 mg TRANSDERMA DAILY [facility] Last Admin: 06/23/22 08:56 Dose: 7 mg Nicotine Polacrilex (Nicotine Polacrilex 2 Mg Gum) 2 mg BUCCAL Q2H PRN PRN Reason: smoking craving Last Admin: 06/18/22 14:22 Dose: 2 mg Olanzapine (Olanzapine 7.5 Mg Tablet) 7.5 mg PO BEDTIME [facility] Allergies Allergies Allergy/AdvReac Type Severity Reaction Status Date / Time risperidone AdvReac Intermediate Hypotension Verified 06/16/22 15:00 fluoxetine [From Prozac] AdvReac Agitated Verified 06/16/22 15:00 Assessment & Plan Assessment & Plan (1) Schizo-affective schizophrenia, chronic condition with acute exacerbation: Status: Acute Code(s): F25.9 - Schizoaffective disorder, unspecified (2) Essential (primary) hypertension: Status: Acute Code(s): I10 - Essential (primary) hypertension (3) Hypothyroid: Status: Acute Code(s): E03.9 - Hypothyroidism, unspecified Plan 71 yo female w/ paranoia 06/23 says not on gabapentin for years; may consider discontinuing I spent minutes with the patient and/or on the patient floor today, greater than?50% of which was spent counseling/coordinating care. Patient educated on: medication risk/benefits Informed Consent: understands Reason for contiued inpatient stay Substantial Risk for: rapid decompensation Time Spent With Patient Time: Total time managing care of this patient today ____ minutes.
[2022-06-23 19:00] VITALS: BP 123/58; PULSE 69; RESP 16; TEMP 36.6; O2SAT 95
[2022-06-23] MEDS: OLANZapine 7.5 MG TABLET PO (20:05)
[2022-06-23] MEDS: Melatonin 3 MG TABLET 9 MG PO (20:05)
[2022-06-23] MEDS: Latanoprost 0.005 % Ophth Sol 2.5 ML DROPS 1 DROP EYE-BOTH (20:08)
[2022-06-24 08:10] VITALS: BP 153/78; PULSE 63; RESP 16; TEMP 36.6; O2SAT 97
[2022-06-24] MEDS: Ferrous Sulfate 324 MG TABLET.DR PO (09:11)
[2022-06-24] MEDS: Levothyroxine Sodium 150 MCG TABLET PO (09:11)
[2022-06-24] MEDS: amLODIPine Besylate 2.5 MG TABLET PO (09:11)
[2022-06-24] MEDS: LORazepam 0.5 MG TABLET PO ×2 (10:50→19:51)
--- NOTE | 2022-06-24 14:57 | HO.PSYCHPN ---
Subjective Subjective Date of Service: 06/24/22 Reason For Visit: psychosis hallucinations threatening behavior Interim History: Discussed with team, chart reviewed, met with pt. She is writing and attempting to organize. Presented a med list including Vitamin D3, MVI, Cranberry Tabs, Geritol, Lorazepam, Oxycodone, Levothyroxine, Amodipine. Reports she is in need of a new pair of glasses. Discussed refusal of Gabapentin- I took it a long time ago~2006 maybe, it did not work and I gained 15 lbs. Asks for the phone number in the common area as she is wanting to communicate with her daughter as she has clothing and holiday gifts at the respite. States she would like to return to the respite. Medication Compliance: Yes Side effects from medications: Yes (Gabapentin with weight gain) Attending Groups: No Review of Systems Acute medical concerns: No Medical Review of Systems: unchanged Mental Status Exam Mental Status Exam Patient Appearance: Fatigued and Disheveled Patient Orientation: Person Level of Consciousness: Alert Patient Behavior: Talkative, Cooperative and Good Eye Contact Mood Description: Withdrawn and Constricted Affect Description: Withdrawn Patient Cognition Impaired: Yes Ability to Follow Directions: Fair Speech Pattern: Spontaneous Speech and Long Pauses Memory Description: Episodic Impaired Hallucinations: None Delusions: Not Present Thought Process: Distracted and Rumination Thought Content: positive for [place], positive for Circumstantial, positive for Perseveration, positive for Slowed Thinking, positive for Tangential and positive for Suicidal Ideation (denies) Depressive Symptoms: Increased Anxiety, Increased Fatigue, Thoughts of /Suicide (denies), Loss of Energy and Difficulty Concentrating Judgement: Poor Diagnostics Vital Signs (24Hr): Vital Signs - 24 hr 06/23/22 19:00 06/24/22 08:10 Temperature 97.9 F 97.8 F Pulse Rate 69 63 Respiratory Rate 16 16 Blood Pressure 123/58 L 153/78 H Pulse Oximetry 95 97 Oxygen Delivery Method Room Air Room Air Labs Results: 06/18/22 14:16 Medications Medications Current Medications Acetaminophen (Acetaminophen 325 Mg Tablet) 650 mg PO Q6H PRN PRN Reason: Headache/Pain Mild Scale (1-3) Last Admin: 06/21/22 21:17 Dose: 650 mg Al Hydroxide/Mg Hydroxide (Magnesium Hydrox/Alum Hydrox 30 Ml Oral.Susp) 30 ml PO Q6H PRN PRN Reason: Heartburn/Nausea Amlodipine Besylate (Amlodipine Besylate 2.5 Mg Tablet) 2.5 mg PO DAILY [facility]; Protocol Last Admin: 06/24/22 09:11 Dose: 2.5 mg Ferrous Sulfate (Ferrous Sulfate 324 Mg Tablet.Dr) 324 mg PO DAILY [facility] Last Admin: 06/24/22 09:11 Dose: 324 mg Gabapentin (Gabapentin 300 Mg Capsule) 300 mg PO BEDTIME [facility] Last Admin: 06/23/22 20:06 Dose: Not Given Hydroxyzine HCl (Hydroxyzine Hcl 25 Mg Tablet) 25 mg PO Q6H PRN PRN Reason: Anxiety Latanoprost (Latanoprost 0.005 % Ophth [place] 2.5 Ml Drops) 1 drop EYE-BOTH BEDTIME [facility] Last Admin: 06/23/22 20:08 Dose: 1 drop Levothyroxine Sodium (Levothyroxine Sodium 150 Mcg Tablet) 150 mcg PO DAILY [facility] Last Admin: 06/24/22 09:11 Dose: 150 mcg Lorazepam (Lorazepam 0.5 Mg Tablet) 0.5 mg PO BID [facility] Last Admin: 06/24/22 10:50 Dose: 0.5 mg Magnesium Hydroxide (Milk Of Magnesia 30 Ml Oral.Susp) 30 ml PO DAILY PRN PRN Reason: Constipation Melatonin (Melatonin 3 Mg Tablet) 9 mg PO BEDTIME [facility] Last Admin: 06/23/22 20:05 Dose: 9 mg Nicotine (Nicotine 7 Mg Patch.Td24) 7 mg TRANSDERMA DAILY [facility] Last Admin: 06/24/22 09:14 Dose: Not Given Nicotine Polacrilex (Nicotine Polacrilex 2 Mg Gum) 2 mg BUCCAL Q2H PRN PRN Reason: smoking craving Last Admin: 06/18/22 14:22 Dose: 2 mg Olanzapine (Olanzapine 7.5 Mg Tablet) 7.5 mg PO BEDTIME [facility] Last Admin: 06/23/22 20:05 Dose: 7.5 mg Allergies Allergies Allergy/AdvReac Type Severity Reaction Status Date / Time risperidone AdvReac Intermediate Hypotension Verified 06/16/22 15:00 fluoxetine [From Prozac] AdvReac Agitated Verified 06/16/22 15:00 Assessment & Plan Assessment & Plan (1) Schizo-affective schizophrenia, chronic condition with acute exacerbation: Status: Acute Code(s): F25.9 - Schizoaffective disorder, unspecified (2) Essential (primary) hypertension: Status: Acute Code(s): I10 - Essential (primary) hypertension (3) Hypothyroid: Status: Acute Code(s): E03.9 - Hypothyroidism, unspecified Plan 71 yo female w/ paranoia 06/23 says not on gabapentin for years; may consider discontinuing 06/24/22: MVI i tab daily Vitamin D3 10 mg daily Discontinue Gabapentin-pt reports she last took it in ~2006 and it was not helpful and precipitated a weight gain. I spent minutes with the patient and/or on the patient floor today, greater than?50% of which was spent counseling/coordinating care. Patient educated on: medication risk/benefits and therapeutic strategies Informed Consent: further education needed Reason for contiued inpatient stay Substantial Risk for: rapid decompensation Time Spent With Patient Time: Total time managing care of this patient today _25___ minutes.
[2022-06-24 18:00] VITALS: BP 133/43; PULSE 56; RESP 14; TEMP 36.3; O2SAT 97
[2022-06-24] MEDS: Melatonin 3 MG TABLET 9 MG PO (19:49)
[2022-06-24] MEDS: OLANZapine 7.5 MG TABLET PO (19:50)
[2022-06-24] MEDS: Latanoprost 0.005 % Ophth Sol 2.5 ML DROPS 1 DROP EYE-BOTH (19:54)
[2022-06-25 06:00] VITALS: BP 130/78; PULSE 82; RESP 16; TEMP 36.8; O2SAT 98
[2022-06-25] MEDS: Ferrous Sulfate 324 MG TABLET.DR PO (10:27)
[2022-06-25] MEDS: amLODIPine Besylate 2.5 MG TABLET PO (10:27)
[2022-06-25] MEDS: Multivitamin TABLET 1 TAB PO (10:27)
[2022-06-25] MEDS: Levothyroxine Sodium 150 MCG TABLET PO (10:27)
[2022-06-25] MEDS: LORazepam 0.5 MG TABLET PO ×2 (10:27→21:25)
[2022-06-25] MEDS: Cholecalciferol (Vitamin D3) 10 MCG TABLET PO (10:28)
--- NOTE | 2022-06-25 15:12 | P.PNPSI_ITS ---
Subjective Subjective Date of Service: 06/25/22 Reason For Visit: psychosis hallucinations threatening behavior Interim History: Patient isolative withdrawn limited engagement asking for narcotics. Case reviewed with nursing staff and treatment team Mental Status Exam Mental Status Exam Patient Appearance: Fatigued and Disheveled Patient Orientation: Person, Place and Situation Level of Consciousness: Alert Patient Behavior: Talkative, Cooperative and Good Eye Contact Mood Description: Withdrawn and Constricted Affect Description: Withdrawn Patient Cognition Impaired: Yes Ability to Follow Directions: Fair Speech Pattern: Spontaneous Speech and Long Pauses Memory Description: Episodic Impaired Hallucinations: None Delusions: Paranoid Ideation Thought Process: Distracted and Rumination Thought Content: positive for [place], positive for Circumstantial, positive for Perseveration, positive for Slowed Thinking, positive for Tangential and positive for Suicidal Ideation (denies) Depressive Symptoms: Increased Anxiety, Increased Fatigue, Thoughts of Marj th/Suicide (denies), Loss of Energy and Difficulty Concentrating Judgement: Poor Judgement and Insight: For thoughts that she has not given renal medication perseverative request for narcotics Diagnostics Vital Signs (24Hr): Vital Signs - 24 hr 06/24/22 18:00 Temperature 97.4 F Pulse Rate 56 Respiratory Rate 14 Blood Pressure 133/43 L Pulse Oximetry 97 Oxygen Delivery Method Room Air Labs Results: 06/18/22 14:16 Medications Medications Current Medications Acetaminophen (Acetaminophen 325 Mg Tablet) 650 mg PO Q6H PRN PRN Reason: Headache/Pain Mild Scale (1-3) Last Admin: 06/21/22 21:17 Dose: 650 mg Al Hydroxide/Mg Hydroxide (Magnesium Hydrox/Alum Hydrox 30 Ml Oral.Susp) 30 ml PO Q6H PRN PRN Reason: Heartburn/Nausea Amlodipine Besylate (Amlodipine Besylate 2.5 Mg Tablet) 2.5 mg PO DAILY [facility]; Protocol Last Admin: 06/25/22 10:27 Dose: 2.5 mg Ferrous Sulfate (Ferrous Sulfate 324 Mg Tablet.Dr) 324 mg PO DAILY [facility] Last Admin: 06/25/22 10:27 Dose: 324 mg Hydroxyzine HCl (Hydroxyzine Hcl 25 Mg Tablet) 25 mg PO Q6H PRN PRN Reason: Anxiety Latanoprost (Latanoprost 0.005 % Ophth [place] 2.5 Ml Drops) 1 drop EYE-BOTH BEDTIME [facility] Last Admin: 06/24/22 19:54 Dose: 1 drop Levothyroxine Sodium (Levothyroxine Sodium 150 Mcg Tablet) 150 mcg PO DAILY [facility] Last Admin: 06/25/22 10:27 Dose: 150 mcg Lorazepam (Lorazepam 0.5 Mg Tablet) 0.5 mg PO BID [facility] Last Admin: 06/25/22 10:27 Dose: 0.5 mg Magnesium Hydroxide (Milk Of Magnesia 30 Ml Oral.Susp) 30 ml PO DAILY PRN PRN Reason: Constipation Melatonin (Melatonin 3 Mg Tablet) 9 mg PO BEDTIME [facility] Last Admin: 06/24/22 19:49 Dose: 9 mg Multivitamins/Vitamin C (Multivitamin Tablet) 1 tab PO DAILY [facility] Last Admin: 06/25/22 10:27 Dose: 1 tab Nicotine (Nicotine 7 Mg Patch.Td24) 7 mg TRANSDERMA DAILY [facility] Last Admin: 06/25/22 13:31 Dose: Not Given Nicotine Polacrilex (Nicotine Polacrilex 2 Mg Gum) 2 mg BUCCAL Q2H PRN PRN Reason: smoking craving Last Admin: 06/18/22 14:22 Dose: 2 mg Olanzapine (Olanzapine 7.5 Mg Tablet) 7.5 mg PO BEDTIME [facility] Last Admin: 06/24/22 19:50 Dose: 7.5 mg Vitamin D (Cholecalciferol (Vitamin D3) 10 Mcg Tablet) 10 mcg PO DAILY [facility] Last Admin: 06/25/22 10:28 Dose: 10 mcg Allergies Allergies Allergy/AdvReac Type Severity Reaction Status Date / Time risperidone AdvReac Intermediate Hypotension Verified 06/16/22 15:00 fluoxetine [From Prozac] AdvReac Agitated Verified 06/16/22 15:00 Assessment & Plan Assessment & Plan (1) Schizo-affective schizophrenia, chronic condition with acute exacerbation: Status: Acute Code(s): F25.9 - Schizoaffective disorder, unspecified (2) Essential (primary) hypertension: Status: Acute Code(s): I10 - Essential (primary) hypertension (3) Hypothyroid: Status: Acute Code(s): E03.9 - Hypothyroidism, unspecified Plan 71 yo female w/ paranoia 06/23 says not on gabapentin for years; may consider discontinuing 06/24/22: MVI i tab daily Vitamin D3 10 mg daily 06/25/2022 Continue olanzapine try in get a better idea of patient's psychiatric history and specific behavior that caused admission Discontinue Gabapentin-pt reports she last took it in ~2006 and it was not helpful and precipitated a weight gain. I spent minutes with the patient and/or on the patient floor today, greater than?50% of which was spent counseling/coordinating care. Reason for contiued inpatient stay Substantial Risk for: harm to self, inability to function and rapid decompensation Time Spent With Patient Time: Total time managing care of this patient today ____ minutes.
[2022-06-25] MEDS: Melatonin 3 MG TABLET 9 MG PO (21:25)
[2022-06-25] MEDS: OLANZapine 7.5 MG TABLET PO (21:25)
[2022-06-26 08:30] VITALS: BP 144/67; PULSE 65; RESP 16; TEMP 36.8; O2SAT 98
[2022-06-26] MEDS: Ferrous Sulfate 324 MG TABLET.DR PO (08:31)
[2022-06-26] MEDS: Multivitamin TABLET 1 TAB PO (08:32)
[2022-06-26] MEDS: amLODIPine Besylate 2.5 MG TABLET PO (08:32)
[2022-06-26] MEDS: Levothyroxine Sodium 150 MCG TABLET PO (08:32)
[2022-06-26] MEDS: Cholecalciferol (Vitamin D3) 10 MCG TABLET PO (08:32)
[2022-06-26] MEDS: LORazepam 0.5 MG TABLET PO ×2 (08:33→20:30)
[2022-06-26] MEDS: Ibuprofen 600 MG TABLET PO (14:03)
[2022-06-26 20:00] VITALS: BP 155/75; PULSE 74; RESP 16; TEMP 36.4; O2SAT 96
[2022-06-26] MEDS: Melatonin 3 MG TABLET 9 MG PO (20:29)
[2022-06-26] MEDS: OLANZapine 10 MG TABLET PO (20:30)
[2022-06-26] MEDS: Latanoprost 0.005 % Ophth Sol 2.5 ML DROPS 1 DROP EYE-BOTH (20:31)
--- NOTE | 2022-06-26 22:39 | HO.PSYCHPN ---
Subjective Subjective Date of Service: 06/26/22 Reason For Visit: psychosis hallucinations threatening behavior Interim History: Patient withdrawn depressed focus on the fact that she is not getting real medication denies that she has any psychiatric diagnosis or need for medication Mental Status Exam Mental Status Exam Patient Appearance: Fatigued and Disheveled Patient Orientation: Person, Place and Situation Level of Consciousness: Alert Patient Behavior: Talkative, Cooperative and Good Eye Contact Mood Description: Withdrawn, Constricted and Depressed Affect Description: Withdrawn and Flat Patient Cognition Impaired: Yes Ability to Follow Directions: Fair Speech Pattern: Spontaneous Speech and Long Pauses Memory Description: Episodic Impaired Hallucinations: None Delusions: Paranoid Ideation Thought Process: Distracted and Rumination Thought Content: positive for [place], positive for Circumstantial, positive for Perseveration, positive for Slowed Thinking, positive for Tangential and positive for Suicidal Ideation (denies) Depressive Symptoms: Increased Anxiety, Increased Fatigue, Thoughts of /Suicide (denies), Loss of Energy and Difficulty Concentrating Judgement: Poor Judgement and Insight: thoughts that she has not given real medication perseverative request for narcotics Diagnostics Vital Signs (24Hr): Vital Signs - 24 hr 06/26/22 08:30 06/26/22 20:00 Temperature 98.2 F 97.5 F Pulse Rate 65 74 Respiratory Rate 16 16 Blood Pressure 144/67 H 155/75 H Pulse Oximetry 98 96 Oxygen Delivery Method Room Air Room Air Labs Results: 06/18/22 14:16 Medications Medications Current Medications Acetaminophen (Acetaminophen 325 Mg Tablet) 650 mg PO Q6H PRN PRN Reason: Headache/Pain Mild Scale (1-3) Last Admin: 06/21/22 21:17 Dose: 650 mg Al Hydroxide/Mg Hydroxide (Magnesium Hydrox/Alum Hydrox 30 Ml Oral.Susp) 30 ml PO Q6H PRN PRN Reason: Heartburn/Nausea Amlodipine Besylate (Amlodipine Besylate 2.5 Mg Tablet) 2.5 mg PO DAILY [facility]; Protocol Last Admin: 06/26/22 08:32 Dose: 2.5 mg Ferrous Sulfate (Ferrous Sulfate 324 Mg Tablet.Dr) 324 mg PO DAILY [facility] Last Admin: 06/26/22 08:31 Dose: 324 mg Hydroxyzine HCl (Hydroxyzine Hcl 25 Mg Tablet) 25 mg PO Q6H PRN PRN Reason: Anxiety Ibuprofen (Ibuprofen 600 Mg Tablet) 600 mg PO Q6H PRN PRN Reason: Pain, Moderate (Pain Scale 4-6 Last Admin: 06/26/22 14:03 Dose: 600 mg Latanoprost (Latanoprost 0.005 % Ophth [place] 2.5 Ml Drops) 1 drop EYE-BOTH BEDTIME [facility] Last Admin: 06/26/22 20:31 Dose: 1 drop Levothyroxine Sodium (Levothyroxine Sodium 150 Mcg Tablet) 150 mcg PO DAILY [facility] Last Admin: 06/26/22 08:32 Dose: 150 mcg Lorazepam (Lorazepam 0.5 Mg Tablet) 0.5 mg PO BID [facility] Last Admin: 06/26/22 20:30 Dose: 0.5 mg Magnesium Hydroxide (Milk Of Magnesia 30 Ml Oral.Susp) 30 ml PO DAILY PRN PRN Reason: Constipation Melatonin (Melatonin 3 Mg Tablet) 9 mg PO BEDTIME [facility] Last Admin: 06/26/22 20:29 Dose: 9 mg Multivitamins/Vitamin C (Multivitamin Tablet) 1 tab PO DAILY [facility] Last Admin: 06/26/22 08:32 Dose: 1 tab Nicotine (Nicotine 7 Mg Patch.Td24) 7 mg TRANSDERMA DAILY PRN PRN Reason: nicotine cravings Nicotine Polacrilex (Nicotine Polacrilex 2 Mg Gum) 2 mg BUCCAL Q2H PRN PRN Reason: smoking craving Last Admin: 06/18/22 14:22 Dose: 2 mg Olanzapine (Olanzapine 10 Mg Tablet) 10 mg PO BEDTIME [facility] Last Admin: 06/26/22 20:30 Dose: 10 mg Vitamin D (Cholecalciferol (Vitamin D3) 10 Mcg Tablet) 10 mcg PO DAILY [facility] Last Admin: 06/26/22 08:32 Dose: 10 mcg Allergies Allergies Allergy/AdvReac Type Severity Reaction Status Date / Time risperidone AdvReac Intermediate Hypotension Verified 06/16/22 15:00 fluoxetine [From Prozac] AdvReac Agitated Verified 06/16/22 15:00 Assessment & Plan Assessment & Plan (1) Schizo-affective schizophrenia, chronic condition with acute exacerbation: Status: Acute Code(s): F25.9 - Schizoaffective disorder, unspecified (2) Essential (primary) hypertension: Status: Acute Code(s): I10 - Essential (primary) hypertension (3) Hypothyroid: Status: Acute Code(s): E03.9 - Hypothyroidism, unspecified Plan 71 yo female w/ paranoia 06/23 says not on gabapentin for years; may consider discontinuing 06/24/22: MVI i tab daily Vitamin D3 10 mg daily 06/25/2022 Continue olanzapine try in get a better idea of patient's psychiatric history and specific behavior that caused admission Discontinue Gabapentin-pt reports she last took it in ~2006 and it was not helpful and precipitated a weight gain. 06/26/2022 Continue olanzapine encourage treatment acceptance trying clarify patient's history I spent minutes with the patient and/or on the patient floor today, greater than?50% of which was spent counseling/coordinating care. Reason for contiued inpatient stay Substantial Risk for: harm to self, inability to function and rapid decompensation Time Spent With Patient Time: Total time managing care of this patient today ____ minutes.
[2022-06-27 08:00] VITALS: BP 167/74; PULSE 61; RESP 14; TEMP 36.6; O2SAT 97
[2022-06-27] MEDS: Multivitamin TABLET 1 TAB PO (08:20)
[2022-06-27] MEDS: Cholecalciferol (Vitamin D3) 10 MCG TABLET PO (08:21)
[2022-06-27] MEDS: amLODIPine Besylate 2.5 MG TABLET PO (08:21)
[2022-06-27] MEDS: Levothyroxine Sodium 150 MCG TABLET PO (08:21)
[2022-06-27] MEDS: Ferrous Sulfate 324 MG TABLET.DR PO (08:21)
[2022-06-27] MEDS: LORazepam 0.5 MG TABLET PO ×2 (08:22→21:26)
[2022-06-27] MEDS: Ibuprofen 600 MG TABLET PO (08:26)
--- NOTE | 2022-06-27 09:24 | P.PNPSI_ITS ---
Subjective Subjective Date of Service: 06/27/22 Reason For Visit: psychosis hallucinations threatening behavior Subjective Notes: Conditional Voluntary Interim History: The patient is irritable dysphoric tends to be somewhat isolative. Complains about pain and that she had been on Oxy code own years ago and states she just needs to be on oxycodone for pain. Being themes of feeling persecuted by others being committed to mental health settings the, discussing paranoid concerns that interfered with her life in the past including satanic influences . Patient does states she was on injectable Prolixin many years ago Diagnostics Vital Signs (24Hr): Vital Signs - 24 hr 06/26/22 20:00 Temperature 97.5 F Pulse Rate 74 Respiratory Rate 16 Blood Pressure 155/75 H Pulse Oximetry 96 Oxygen Delivery Method Room Air Labs Results: 06/18/22 14:16 Medications Medications Current Medications Acetaminophen (Acetaminophen 325 Mg Tablet) 650 mg PO Q6H PRN PRN Reason: Headache/Pain Mild Scale (1-3) Last Admin: 06/21/22 21:17 Dose: 650 mg Al Hydroxide/Mg Hydroxide (Magnesium Hydrox/Alum Hydrox 30 Ml Oral.Susp) 30 ml PO Q6H PRN PRN Reason: Heartburn/Nausea Amlodipine Besylate (Amlodipine Besylate 2.5 Mg Tablet) 2.5 mg PO DAILY [facility]; Protocol Last Admin: 06/27/22 08:21 Dose: 2.5 mg Ferrous Sulfate (Ferrous Sulfate 324 Mg Tablet.Dr) 324 mg PO DAILY [facility] Last Admin: 06/27/22 08:21 Dose: 324 mg Hydroxyzine HCl (Hydroxyzine Hcl 25 Mg Tablet) 25 mg PO Q6H PRN PRN Reason: Anxiety Ibuprofen (Ibuprofen 600 Mg Tablet) 600 mg PO Q6H PRN PRN Reason: Pain, Moderate (Pain Scale 4-6 Last Admin: 06/27/22 08:26 Dose: 600 mg Latanoprost (Latanoprost 0.005 % Ophth Petrona 2.5 Ml Drops) 1 drop EYE-BOTH BEDTI [facility] Last Admin: 06/26/22 20:31 Dose: 1 drop Levothyroxine Sodium (Levothyroxine Sodium 150 Mcg Tablet) 150 mcg PO DAILY [facility] Last Admin: 06/27/22 08:21 Dose: 150 mcg Lorazepam (Lorazepam 0.5 Mg Tablet) 0.5 mg PO BID [facility] Last Admin: 06/27/22 08:22 Dose: 0.5 mg Magnesium Hydroxide (Milk Of Magnesia 30 Ml Oral.Susp) 30 ml PO DAILY PRN PRN Reason: Constipation Melatonin (Melatonin 3 Mg Tablet) 9 mg PO BEDTIME [facility] Last Admin: 06/26/22 20:29 Dose: 9 mg Multivitamins/Vitamin C (Multivitamin Tablet) 1 tab PO DAILY [facility] Last Admin: 06/27/22 08:20 Dose: 1 tab Nicotine (Nicotine 7 Mg Patch.Td24) 7 mg TRANSDERMA DAILY PRN PRN Reason: nicotine cravings Nicotine Polacrilex (Nicotine Polacrilex 2 Mg Gum) 2 mg BUCCAL Q2H PRN PRN Reason: smoking craving Last Admin: 06/18/22 14:22 Dose: 2 mg Olanzapine (Olanzapine 10 Mg Tablet) 10 mg PO BEDTIME [facility] Last Admin: 06/26/22 20:30 Dose: 10 mg Vitamin D (Cholecalciferol (Vitamin D3) 10 Mcg Tablet) 10 mcg PO DAILY [facility] Last Admin: 06/27/22 08:21 Dose: 10 mcg Allergies Allergies Allergy/AdvReac Type Severity Reaction Status Date / Time risperidone AdvReac Intermediate Hypotension Verified 06/16/22 15:00 fluoxetine [From Prozac] AdvReac Agitated Verified 06/16/22 15:00 Assessment & Plan Assessment & Plan (1) Schizo-affective schizophrenia, chronic condition with acute exacerbation: Status: Acute Code(s): F25.9 - Schizoaffective disorder, unspecified (2) Essential (primary) hypertension: Status: Acute Code(s): I10 - Essential (primary) hypertension (3) Hypothyroid: Status: Acute Code(s): E03.9 - Hypothyroidism, unspecified Plan 71 yo female w/ paranoia 06/23 says not on gabapentin for years; may consider discontinuing 06/24/22: MVI i tab daily Vitamin D3 10 mg daily 06/25/2022 Continue olanzapine try in get a better idea of patient's psychiatric history and specific behavior that caused admission Discontinue Gabapentin-pt reports she last took it in ~2006 and it was not helpful and precipitated a weight gain. 06/26/2022 Continue olanzapine encourage treatment acceptance trying clarify patient's history 06/27/2022 Continue olanzapine 10 mg at bedtime patient has limited insight denies psychiatric illness need for antipsychotics and apparently this has been an issue for many years. Although she had been at [facility] for over 6 months a probate Sexton was not obtained nor was she on a long-acting injectable which would seem to be Potentially problematic patient does have DMH I spent minutes with the patient and/or on the patient floor today, greater than?50% of which was spent counseling/coordinating care. Patient educated on: diagnosis and medication risk/benefits Informed Consent: further education needed Reason for contiued inpatient stay Substantial Risk for: harm to others and rapid decompensation Time Spent With Patient Time: Total time managing care of this patient today ____ minutes.
[2022-06-27 18:00] VITALS: BP 146/77; PULSE 76; RESP 16; TEMP 36.1; O2SAT 95
[2022-06-27] MEDS: Melatonin 3 MG TABLET 9 MG PO (21:26)
[2022-06-27] MEDS: OLANZapine 10 MG TABLET PO (21:26)
[2022-06-27] MEDS: Latanoprost 0.005 % Ophth Sol 2.5 ML DROPS 1 DROP EYE-BOTH (21:32)
[2022-06-28 07:30] VITALS: BP 169/84; PULSE 86; RESP 18; TEMP 36.6; O2SAT 97
[2022-06-28] MEDS: LORazepam 0.5 MG TABLET PO ×2 (10:32→22:05)
[2022-06-28] MEDS: amLODIPine Besylate 2.5 MG TABLET PO (10:32)
--- NOTE | 2022-06-28 15:40 | HO.PSYCHPN ---
Subjective Subjective Date of Service: 06/28/22 Reason For Visit: psychosis hallucinations threatening behavior Subjective Notes: Conditional Voluntary Interim History: The patient is withdrawn flat often isolative. She is very resistant to any psychiatric diagnosis and although she did meet with [facility] in a [facility] she denied any need for ongoing psychiatric services but did except there help. Patient was amenable to trying Seroquel for her complaints of anxiety which apparently she has taken in the past Mental Status Exam Mental Status Exam Patient Appearance: Fatigued Patient Orientation: Person, Place and Situation Level of Consciousness: Alert Patient Behavior: Talkative, Cooperative and Good Eye Contact Mood Description: Withdrawn, Constricted and Depressed Affect Description: Withdrawn and Flat Patient Cognition Impaired: Yes Ability to Follow Directions: Fair Speech Pattern: Spontaneous Speech and Long Pauses Memory Description: Episodic Impaired Hallucinations: None Delusions: Paranoid Ideation Thought Process: Distracted and Rumination Thought Content: positive for Seg[place], positive for Circumstantial, positive for Perseveration, positive for Slowed Thinking, positive for Tangential and positive for Suicidal Ideation (denies) Depressive Symptoms: Increased Anxiety, Increased Fatigue, Thoughts of /Suicide (denies), Loss of Energy and Difficulty Concentrating Judgement: Poor Judgement and Insight: thoughts that she has not given real medication perseverative request for narcotics Diagnostics Vital Signs (24Hr): Vital Signs - 24 hr 06/27/22 18:00 06/28/22 07:30 Temperature 96.9 F 97.9 F Pulse Rate 76 86 Respiratory Rate 16 18 Blood Pressure 146/77 H 169/84 H Pulse Oximetry 95 97 Oxygen Delivery Method Room Air Room Air Labs Results: 06/18/22 14:16 Medications Medications Current Medications Acetaminophen (Acetaminophen 325 Mg Tablet) 650 mg PO Q6H PRN PRN Reason: Headache/Pain Mild Scale (1-3) Last Admin: 06/21/22 21:17 Dose: 650 mg Al Hydroxide/Mg Hydroxide (Magnesium Hydrox/Alum Hydrox 30 Ml Oral.Susp) 30 ml PO Q6H PRN PRN Reason: Heartburn/Nausea Amlodipine Besylate (Amlodipine Besylate 2.5 Mg Tablet) 2.5 mg PO DAILY [facility]; Protocol Last Admin: 06/28/22 10:32 Dose: 2.5 mg Ferrous Sulfate (Ferrous Sulfate 324 Mg Tablet.Dr) 324 mg PO DAILY [facility] Last Admin: 06/28/22 10:33 Dose: Not Given Hydroxyzine HCl (Hydroxyzine Hcl 25 Mg Tablet) 25 mg PO Q6H PRN PRN Reason: Anxiety Ibuprofen (Ibuprofen 600 Mg Tablet) 600 mg PO Q6H PRN PRN Reason: Pain, Moderate (Pain Scale 4-6 Last Admin: 06/27/22 08:26 Dose: 600 mg Latanoprost (Latanoprost 0.005 % Ophth Petrona 2.5 Ml Drops) 1 drop [facility]OTH BEDTIME [facility] Last Admin: 06/27/22 21:32 Dose: 1 drop Levothyroxine Sodium (Levothyroxine Sodium 150 Mcg Tablet) 150 mcg PO DAILY [facility] Last Admin: 06/28/22 10:33 Dose: Not Given Lorazepam (Lorazepam 0.5 Mg Tablet) 0.5 mg PO BID [facility] Last Admin: 06/28/22 10:32 Dose: 0.5 mg Magnesium Hydroxide (Milk Of Magnesia 30 Ml Oral.Susp) 30 ml PO DAILY PRN PRN Reason: Constipation Melatonin (Melatonin 3 Mg Tablet) 9 mg PO BEDTIME [facility] Last Admin: 06/27/22 21:26 Dose: 9 mg Multivitamins/Vitamin C (Multivitamin Tablet) 1 tab PO DAILY [facility] Last Admin: 06/28/22 10:35 Dose: Not Given Nicotine (Nicotine 7 Mg Patch.Td24) 7 mg TRANSDERMA DAILY PRN PRN Reason: nicotine cravings Nicotine Polacrilex (Nicotine Polacrilex 2 Mg Gum) 2 mg BUCCAL Q2H PRN PRN Reason: smoking craving Last Admin: 06/18/22 14:22 Dose: 2 mg Olanzapine (Olanzapine 10 Mg Tablet) 10 mg PO BEDTIME [facility] Last Admin: 06/27/22 21:26 Dose: 10 mg Quetiapine Fumarate (Quetiapine Fumarate 25 Mg Tablet) 12.5 mg PO Q6H PRN PRN Reason: Anxiety Vitamin D (Cholecalciferol (Vitamin D3) 10 Mcg Tablet) 10 mcg PO DAILY [facility] Last Admin: 06/28/22 10:33 Dose: Not Given Allergies Allergies Allergy/AdvReac Type Severity Reaction Status Date / Time risperidone AdvReac Intermediate Hypotension Verified 06/16/22 15:00 fluoxetine [From Prozac] AdvReac Agitated Verified 06/16/22 15:00 Assessment & Plan Assessment & Plan (1) Schizo-affective schizophrenia, chronic condition with acute exacerbation: Status: Acute Code(s): F25.9 - Schizoaffective disorder, unspecified (2) Essential (primary) hypertension: Status: Acute Code(s): I10 - Essential (primary) hypertension (3) Hypothyroid: Status: Acute Code(s): E03.9 - Hypothyroidism, unspecified Plan 71 yo female w/ paranoia 06/23 says not on gabapentin for years; may consider discontinuing 06/24/22: MVI i tab daily Vitamin D3 10 mg daily 06/25/2022 Continue olanzapine try in get a better idea of patient's psychiatric history and specific behavior that caused admission Discontinue Gabapentin-pt reports she last took it in ~2006 and it was not helpful and precipitated a weight gain. 06/26/2022 Continue olanzapine encourage treatment acceptance trying clarify patient's history 06/27/2022 Continue olanzapine 10 mg at bedtime patient has limited insight denies psychiatric illness need for antipsychotics and apparently this has been an issue for many years. Although she had been at [facility] for over 6 months a probate Sexton was not obtained nor was she on a long-acting injectable which would seem to be Potentially problematic patient does have DM 06/28/2022 Patient continues to be psychotic with paranoid concerns somewhat anxious and dysphoric limited insight. Agreeable to low-dose Seroquel 12.5 mg continue olanzapine 10 mg at bedtime. Coordinate care with transfer back to [facility] when stable. Patient would benefit from a long-acting injectable but is resistant to this recommendation Patient educated on: diagnosis and medication risk/benefits Informed Consent: further education needed Reason for contiued inpatient stay Substantial Risk for: harm to others and rapid decompensation Time Spent With Patient Time: Total time managing care of this patient today ____ minutes.
[2022-06-28] MEDS: QUEtiapine Fumarate 25 MG TABLET 12.5 MG PO ×2 (15:55→22:03)
[2022-06-28 21:45] VITALS: BP 140/64; PULSE 63; RESP 16; TEMP 36.4; O2SAT 94
[2022-06-28] MEDS: Ibuprofen 600 MG TABLET PO (22:11)
[2022-06-29 07:30] VITALS: BP 144/83; PULSE 77; RESP 17; TEMP 36.3; O2SAT 94
[2022-06-29] MEDS: Levothyroxine Sodium 150 MCG TABLET PO (08:17)
[2022-06-29] MEDS: Multivitamin TABLET 1 TAB PO (08:17)
[2022-06-29] MEDS: Ferrous Sulfate 324 MG TABLET.DR PO (08:17)
[2022-06-29] MEDS: Cholecalciferol (Vitamin D3) 10 MCG TABLET PO (08:17)
[2022-06-29] MEDS: amLODIPine Besylate 2.5 MG TABLET PO (08:17)
[2022-06-29] MEDS: LORazepam 0.5 MG TABLET PO (08:17)
--- NOTE | 2022-06-29 15:09 | HO.PSYCHPN ---
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 Pt explained to use combination of tylenol and ibuprofen. Pt continues with some suspiciousness about her medication, someone stealing her identity but is no longer asking staff to look if her belonging where stolen here on the unit. This morning for the first time she took medications without questioning if they were the real ones or not. Medication Compliance: Yes Side effects from medications: No Attending Groups: Yes Mental Status Exam Mental Status Exam Narrative: Appearance: casually groomed, fair hygiene, in NAD Behavior: guarded Psychomotor: no overt agitation or retardation noted Speech: mostly clear, regular rate in response, spontaneous TP: more linear TC: paranoia about her identity being stolen, and medication here not the ones Mood: good Affect: guarded, and constricted AH/VH: denies but appears internally preoccupied Delusions: paranoid delusions Insight/judgment: poor x 2. Memory/cog: alert, oriented to place, not situation Diagnostics Vital Signs (24Hr): Vital Signs - 24 hr 06/28/22 21:45 06/29/22 07:30 Temperature 97.6 F 97.3 F Pulse Rate 63 77 Respiratory Rate 16 17 Blood Pressure 140/64 H 144/83 H Pulse Oximetry 94 94 Oxygen Delivery Method Room Air Room Air Labs Results: 06/18/22 14:16 Medications Medications Current Medications Acetaminophen (Acetaminophen 325 Mg Tablet) 650 mg PO Q6H PRN PRN Reason: Headache/Pain Mild Scale (1-3) Last Admin: 06/21/22 21:17 Dose: 650 mg Al Hydroxide/Mg Hydroxide (Magnesium Hydrox/Alum Hydrox 30 Ml Oral.Susp) 30 ml PO Q6H PRN PRN Reason: Heartburn/Nausea Amlodipine Besylate (Amlodipine Besylate 2.5 Mg Tablet) 2.5 mg PO DAILY [facility]; Protocol Last Admin: 06/29/22 08:17 Dose: 2.5 mg Ferrous Sulfate (Ferrous Sulfate 324 Mg Tablet.Dr) 324 mg PO DAILY [facility] Last Admin: 06/29/22 08:17 Dose: 324 mg Hydroxyzine HCl (Hydroxyzine Hcl 25 Mg Tablet) 25 mg PO Q6H PRN PRN Reason: Anxiety Ibuprofen (Ibuprofen 600 Mg Tablet) 600 mg PO Q6H PRN PRN Reason: Pain, Moderate (Pain Scale 4-6 Last Admin: 06/28/22 22:11 Dose: 600 mg Latanoprost (Latanoprost 0.005 % Ophth Petrona 2.5 Ml Drops) 1 drop EYE-BOTH BEDTIME [facility] Last Admin: 06/28/22 21:56 Dose: Not Given Levothyroxine Sodium (Levothyroxine Sodium 150 Mcg Tablet) 150 mcg PO DAILY [facility] Last Admin: 06/29/22 08:17 Dose: 150 mcg Magnesium Hydroxide (Milk Of Magnesia 30 Ml Oral.Susp) 30 ml PO DAILY PRN PRN Reason: Constipation Melatonin (Melatonin 3 Mg Tablet) 9 mg PO BEDTIME [facility] Last Admin: 06/28/22 21:56 Dose: Not Given Multivitamins/Vitamin C (Multivitamin Tablet) 1 tab PO DAILY [facility] Last Admin: 06/29/22 08:17 Dose: 1 tab Nicotine (Nicotine 7 Mg Patch.Td24) 7 mg TRANSDERMA DAILY PRN PRN Reason: nicotine cravings Nicotine Polacrilex (Nicotine Polacrilex 2 Mg Gum) 2 mg BUCCAL Q2H PRN PRN Reason: smoking craving Last Admin: 06/18/22 14:22 Dose: 2 mg Olanzapine (Olanzapine 10 Mg Tablet) 10 mg PO BEDTIME [facility] Last Admin: 06/28/22 21:56 Dose: Not Given Quetiapine Fumarate (Quetiapine Fumarate 25 Mg Tablet) 12.5 mg PO Q6H PRN PRN Reason: Anxiety Last Admin: 06/28/22 22:03 Dose: 12.5 mg Vitamin D (Cholecalciferol (Vitamin D3) 10 Mcg Tablet) 10 mcg PO DAILY [facility] Last Admin: 06/29/22 08:17 Dose: 10 mcg Allergies Allergies Allergy/AdvReac Type Severity Reaction Status Date / Time risperidone AdvReac Intermediate Hypotension Verified 06/16/22 15:00 fluoxetine [From Prozac] AdvReac Agitated Verified 06/16/22 15:00 Assessment & Plan Assessment & Plan (1) Schizo-affective schizophrenia, chronic condition with acute exacerbation: Status: Acute Code(s): F25.9 - Schizoaffective disorder, unspecified (2) Essential (primary) hypertension: Status: Acute Code(s): I10 - Essential (primary) hypertension (3) Hypothyroid: Status: Acute Code(s): E03.9 - Hypothyroidism, unspecified Plan 71 yo female w/ paranoia 06/23 says not on gabapentin for years; may consider discontinuing 06/24/22: MVI i tab daily Vitamin D3 10 mg daily 06/25/2022 Continue olanzapine try in get a better idea of patient's psychiatric history and specific behavior that caused admission Discontinue Gabapentin-pt reports she last took it in ~2006 and it was not helpful and precipitated a weight gain. 06/26/2022 Continue olanzapine encourage treatment acceptance trying clarify patient's history 06/27/2022 Continue olanzapine 10 mg at bedtime patient has limited insight denies psychiatric illness need for antipsychotics and apparently this has been an issue for many years. Although she had been at [facility] for over 6 months a probate Sexton was not obtained nor was she on a long-acting injectable which would seem to be Potentially problematic patient does have DMH 06/28/2022 Patient continues to be psychotic with paranoid concerns somewhat anxious and dysphoric limited insight. Agreeable to low-dose Seroquel 12.5 mg continue olanzapine 10 mg at bedtime. Coordinate care with transfer back to [facility] when stable. Patient would benefit from a long-acting injectable but is resistant to this recommendation 06/29 continue current medications. Increase olanzapine to 15mg po qhs. may be better than adding low dose seroquel Reason for contiued inpatient stay Substantial Risk for: inability to function Time Spent With Patient Time: Total time managing care of this patient today ____ minutes.
[2022-06-29] MEDS: QUEtiapine Fumarate 25 MG TABLET 12.5 MG PO (21:00)
[2022-06-30 07:30] VITALS: BP 161/82; PULSE 68; RESP 17; TEMP 37; O2SAT 96
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
[2022-06-30 18:00] VITALS: BP 154/72; PULSE 58; RESP 16; TEMP 36.4; O2SAT 98
[2022-06-30] MEDS: Acetaminophen 325 MG TABLET 650 MG PO (18:33)
[2022-06-30] MEDS: Latanoprost 0.005 % Ophth Sol 2.5 ML DROPS 1 DROP EYE-BOTH (22:22)
[2022-07-01 06:00] VITALS: BP 173/77; PULSE 62; RESP 16; TEMP 36.7; O2SAT 96
--- NOTE | 2022-07-01 13:29 | HO.PSYCHPN ---
Subjective Subjective Date of Service: 07/01/22 Reason For Visit: psychosis hallucinations threatening behavior Interim History: Discussed with team. Pt is still refusing her meds. She is asleep, declined to meet. Mental Status Exam Mental Status Exam Narrative: Appearance: casually groomed, fair hygiene, in NAD Behavior: guarded Psychomotor: no overt agitation or retardation noted Speech: mostly clear, regular rate in response, spontaneous TP: more linear TC: paranoia about her identity being stolen, and medication here not the ones Mood: good Affect: guarded, and constricted AH/VH: denies but appears internally preoccupied Delusions: paranoid delusions Insight/judgment: poor x 2. Memory/cog: alert, oriented to place, not situation Diagnostics Vital Signs (24Hr): Vital Signs - 24 hr 06/30/22 18:00 07/01/22 06:00 Temperature 97.6 F 98.1 F Pulse Rate 58 62 Respiratory Rate 16 16 Blood Pressure 154/72 H 173/77 H Pulse Oximetry 98 96 Oxygen Delivery Method Room Air Room Air Labs Results: 06/18/22 14:16 Medications Medications Current Medications Acetaminophen (Acetaminophen 325 Mg Tablet) 650 mg PO Q6H PRN PRN Reason: Headache/Pain Mild Scale (1-3) Last Admin: 06/30/22 18:33 Dose: 650 mg Al Hydroxide/Mg Hydroxide (Magnesium Hydrox/Alum Hydrox 30 Ml Oral.Susp) 30 ml PO Q6H PRN PRN Reason: Heartburn/Nausea Amlodipine Besylate (Amlodipine Besylate 2.5 Mg Tablet) 2.5 mg PO DAILY [facility]; Protocol Last Admin: 07/01/22 12:12 Dose: Not Given Ferrous Sulfate (Ferrous Sulfate 324 Mg Tablet.Dr) 324 mg PO DAILY [facility] Last Admin: 07/01/22 12:13 Dose: Not Given Hydroxyzine HCl (Hydroxyzine Hcl 25 Mg Tablet) 25 mg PO Q6H PRN PRN Reason: Anxiety Ibuprofen (Ibuprofen 600 Mg Tablet) 600 mg PO Q6H PRN PRN Reason: Pain, Moderate (Pain Scale 4-6 Last Admin: 06/28/22 22:11 Dose: 600 mg Latanoprost (Latanoprost 0.005 % Ophth [place] 2.5 Ml Drops) 1 drop EYE-BOTH BEDTIME [facility] Last Admin: 06/30/22 22:22 Dose: 1 drop Levothyroxine Sodium (Levothyroxine Sodium 150 Mcg Tablet) 150 mcg PO DAILY [facility] Last Admin: 07/01/22 12:13 Dose: Not Given Magnesium Hydroxide (Milk Of Magnesia 30 Ml Oral.Susp) 30 ml PO DAILY PRN PRN Reason: Constipation Melatonin (Melatonin 3 Mg Tablet) 9 mg PO BEDTIME [facility] Last Admin: 06/30/22 20:33 Dose: Not Given Multivitamins/Vitamin C (Multivitamin Tablet) 1 tab PO DAILY [facility] Last Admin: 07/01/22 12:13 Dose: Not Given Nicotine (Nicotine 7 Mg Patch.Td24) 7 mg TRANSDERMA DAILY PRN PRN Reason: nicotine cravings Nicotine Polacrilex (Nicotine Polacrilex 2 Mg Gum) 2 mg BUCCAL Q2H PRN PRN Reason: smoking craving Last Admin: 06/18/22 14:22 Dose: 2 mg Olanzapine (Olanzapine 7.5 Mg Tablet) 15 mg PO BEDTIME [facility] Last Admin: 06/30/22 20:34 Dose: Not Given Quetiapine Fumarate (Quetiapine Fumarate 25 Mg Tablet) 12.5 mg PO Q6H PRN PRN Reason: Anxiety Last Admin: 06/29/22 21:00 Dose: 12.5 mg Vitamin D (Cholecalciferol (Vitamin D3) 10 Mcg Tablet) 10 mcg PO DAILY [facility] Last Admin: 07/01/22 12:13 Dose: Not Given Allergies Allergies Allergy/AdvReac Type Severity Reaction Status Date / Time risperidone AdvReac Intermediate Hypotension Verified 06/16/22 15:00 fluoxetine [From Prozac] AdvReac Agitated Verified 06/16/22 15:00 Assessment & Plan Assessment & Plan (1) Schizo-affective schizophrenia, chronic condition with acute exacerbation: Status: Acute Code(s): F25.9 - Schizoaffective disorder, unspecified (2) Essential (primary) hypertension: Status: Acute Code(s): I10 - Essential (primary) hypertension (3) Hypothyroid: Status: Acute Code(s): E03.9 - Hypothyroidism, unspecified Plan 71 yo female w/ paranoia 06/23 says not on gabapentin for years; may consider discontinuing 06/24/22: MVI i tab daily Vitamin D3 10 mg daily 06/25/2022 Continue olanzapine try in get a better idea of patient's psychiatric history and specific behavior that caused admission Discontinue Gabapentin-pt reports she last took it in ~2006 and it was not helpful and precipitated a weight gain. 06/26/2022 Continue olanzapine encourage treatment acceptance trying clarify patient's history 06/27/2022 Continue olanzapine 10 mg at bedtime patient has limited insight denies psychiatric illness need for antipsychotics and apparently this has been an issue for many years. Although she had been at [facility] for over 6 months a probate Sexton was not obtained nor was she on a long-acting injectable which would seem to be Potentially problematic patient does have DMH 06/28/2022 Patient continues to be psychotic with paranoid concerns somewhat anxious and dysphoric limited insight. Agreeable to low-dose Seroquel 12.5 mg continue olanzapine 10 mg at bedtime. Coordinate care with transfer back to respite when stable. Patient would benefit from a long-acting injectable but is resistant to this recommendation 06/29 continue current medications. Increase olanzapine to 15mg po qhs. may be better than adding low dose seroquel 06/30 pt refusing her medications, paranoid 07/01 pt refusing PO meds Patient educated on: other Reason for contiued inpatient stay Substantial Risk for: inability to function, rapid decompensation and med/psych decompensation Time Spent With Patient Time: Total time managing care of this patient today ____ minutes.
[2022-07-01 18:00] VITALS: BP 193/86; PULSE 70; RESP 16; TEMP 36.2; O2SAT 96
[2022-07-01] MEDS: OLANZapine 7.5 MG TABLET 15 MG PO (20:24)
[2022-07-01] MEDS: Melatonin 3 MG TABLET 9 MG PO (20:24)
[2022-07-02 06:00] VITALS: BP 120/63; PULSE 80; RESP 16; TEMP 36.7; O2SAT 95
--- NOTE | 2022-07-02 15:17 | HO.PSYCHPN ---
Subjective Subjective Date of Service: 07/02/22 Reason For Visit: psychosis hallucinations threatening behavior Interim History: Discussed with team. Pt is laying as she says her neck is sore. She states she wants to discharge home by the end of the week. Then says she wants real ibuprofen, a good amount and something that relaxes me from anxiety. Per RN, pt will refuse the ibuprofen that is offered, as she is paranoid she is being poisoned. She demands ativan at 5 mg, otherwise says it is a waste of time and declines 0.5 mg, then says youre not treating me like a real patient by not medicating me. Still refusing all PO meds offered, paranoid, withdrawn, isolative, appears depressed. Mental Status Exam Mental Status Exam Narrative: Appearance: casually groomed, fair hygiene, in NAD Behavior: guarded Psychomotor: no overt agitation or retardation noted Speech: mostly clear, regular rate in response, spontaneous TP: more linear TC: paranoia about her identity being stolen, and medication here not the ones Mood: depressed Affect: guarded, and constricted AH/VH: denies but appears internally preoccupied Delusions: paranoid delusions Insight/judgment: poor x 2. Memory/cog: alert, oriented to place, not situation Diagnostics Vital Signs (24Hr): Vital Signs - 24 hr 07/01/22 18:00 07/02/22 06:00 Temperature 97.2 F 98.1 F Pulse Rate 70 80 Respiratory Rate 16 16 Blood Pressure 193/86 H 120/63 Pulse Oximetry 96 95 Oxygen Delivery Method Room Air Room Air Labs Results: 06/18/22 14:16 Medications Medications Current Medications Acetaminophen (Acetaminophen 325 Mg Tablet) 650 mg PO Q6H PRN PRN Reason: Headache/Pain Mild Scale (1-3) Last Admin: 06/30/22 18:33 Dose: 650 mg Al Hydroxide/Mg Hydroxide (Magnesium Hydrox/Alum Hydrox 30 Ml Oral.Susp) 30 ml PO Q6H PRN PRN Reason: Heartburn/Nausea Amlodipine Besylate (Amlodipine Besylate 2.5 Mg Tablet) 2.5 mg PO DAILY [facility]; Protocol Last Admin: 07/02/22 10:20 Dose: Not Given Ferrous Sulfate (Ferrous Sulfate 324 Mg Tablet.) 324 mg PO DAILY [facility] Last Admin: 07/02/22 10:20 Dose: Not Given Hydroxyzine HCl (Hydroxyzine Hcl 25 Mg Tablet) 25 mg PO Q6H PRN PRN Reason: Anxiety Ibuprofen (Ibuprofen 600 Mg Tablet) 600 mg PO Q6H PRN PRN Reason: Pain, Moderate (Pain Scale 4-6 Last Admin: 06/28/22 22:11 Dose: 600 mg Latanoprost (Latanoprost 0.005 % Ophth [place] 2.5 Ml Drops) 1 drop EYE-BOTH BEDTIME [facility] Last Admin: 07/01/22 23:05 Dose: Not Given Levothyroxine Sodium (Levothyroxine Sodium 150 Mcg Tablet) 150 mcg PO DAILY [facility] Last Admin: 07/02/22 10:20 Dose: Not Given Magnesium Hydroxide (Milk Of Magnesia 30 Ml Oral.Susp) 30 ml PO DAILY PRN PRN Reason: Constipation Melatonin (Melatonin 3 Mg Tablet) 9 mg PO BEDTIME [facility] Last Admin: 07/01/22 20:24 Dose: 9 mg Multivitamins/Vitamin C (Multivitamin Tablet) 1 tab PO DAILY [facility] Last Admin: 07/02/22 10:20 Dose: Not Given Nicotine (Nicotine 7 Mg Patch.Td24) 7 mg TRANSDERMA DAILY PRN PRN Reason: nicotine cravings Nicotine Polacrilex (Nicotine Polacrilex 2 Mg Gum) 2 mg BUCCAL Q2H PRN PRN Reason: smoking craving Last Admin: 06/18/22 14:22 Dose: 2 mg Olanzapine (Olanzapine 7.5 Mg Tablet) 15 mg PO BEDTIME [facility] Last Admin: 07/01/22 20:24 Dose: 15 mg Quetiapine Fumarate (Quetiapine Fumarate 25 Mg Tablet) 12.5 mg PO Q6H PRN PRN Reason: Anxiety Last Admin: 06/29/22 21:00 Dose: 12.5 mg Vitamin D (Cholecalciferol (Vitamin D3) 10 Mcg Tablet) 10 mcg PO DAILY [facility] Last Admin: 07/02/22 10:20 Dose: Not Given Allergies Allergies Allergy/AdvReac Type Severity Reaction Status Date / Time risperidone AdvReac Intermediate Hypotension Verified 06/16/22 15:00 fluoxetine [From Prozac] AdvReac Agitated Verified 06/16/22 15:00 Assessment & Plan Assessment & Plan (1) Schizo-affective schizophrenia, chronic condition with acute exacerbation: Status: Acute Code(s): F25.9 - Schizoaffective disorder, unspecified (2) Essential (primary) hypertension: Status: Acute Code(s): I10 - Essential (primary) hypertension (3) Hypothyroid: Status: Acute Code(s): E03.9 - Hypothyroidism, unspecified Plan 71 yo female w/ paranoia 06/23 says not on gabapentin for years; may consider discontinuing 06/24/22: MVI i tab daily Vitamin D3 10 mg daily 06/25/2022 Continue olanzapine try in get a better idea of patient's psychiatric history and specific behavior that caused admission Discontinue Gabapentin-pt reports she last took it in ~2006 and it was not helpful and precipitated a weight gain. 06/26/2022 Continue olanzapine encourage treatment acceptance trying clarify patient's history 06/27/2022 Continue olanzapine 10 mg at bedtime patient has limited insight denies psychiatric illness need for antipsychotics and apparently this has been an issue for many years. Although she had been at [facility] for over 6 months a probate Se[place] was not obtained nor was she on a long-acting injectable which would seem to be Potentially problematic patient does have DMH 06/28/2022 Patient continues to be psychotic with paranoid concerns somewhat anxious and dysphoric limited insight. Agreeable to low-dose Seroquel 12.5 mg continue olanzapine 10 mg at bedtime. Coordinate care with transfer back to respite when stable. Patient would benefit from a long-acting injectable but is resistant to this recommendation 06/29 continue current medications. Increase olanzapine to 15mg po qhs. may be better than adding low dose seroquel 06/30 pt refusing her medications, paranoid 07/01 pt refusing PO meds 07/02 pt refusing PO meds Patient educated on: medication risk/benefits Reason for contiued inpatient stay Substantial Risk for: inability to function, rapid decompensation and med/psych decompensation Time Spent With Patient Time: Total time managing care of this patient today ____ minutes.
[2022-07-02 18:00] VITALS: BP 121/72; PULSE 68; RESP 14; TEMP 36.2; O2SAT 95
[2022-07-02] MEDS: Ibuprofen 600 MG TABLET PO (20:46)
[2022-07-02] MEDS: Melatonin 3 MG TABLET 9 MG PO (20:46)
[2022-07-02] MEDS: OLANZapine 7.5 MG TABLET 15 MG PO (20:46)
[2022-07-02] MEDS: Latanoprost 0.005 % Ophth Sol 2.5 ML DROPS 1 DROP EYE-BOTH (20:47)
[2022-07-03 09:10] VITALS: BP 133/66; PULSE 66; RESP 16; TEMP 36.1; O2SAT 96
[2022-07-03] MEDS: Ferrous Sulfate 324 MG TABLET.DR PO (09:14)
[2022-07-03] MEDS: Levothyroxine Sodium 150 MCG TABLET PO (09:14)
[2022-07-03] MEDS: Cholecalciferol (Vitamin D3) 10 MCG TABLET PO (09:14)
[2022-07-03] MEDS: amLODIPine Besylate 2.5 MG TABLET PO (09:14)
[2022-07-03] MEDS: Multivitamin TABLET 1 TAB PO (09:14)
[2022-07-03] MEDS: Ibuprofen 600 MG TABLET PO (09:15)
--- NOTE | 2022-07-03 11:48 | HO.PSYCHPN ---
Subjective Subjective Date of Service: 07/03/22 Reason For Visit: psychosis hallucinations threatening behavior Subjective Notes: Conditional Voluntary Interim History: The nursing staff reported that the patient took her Zyprexa last night after a lot of encouragement with other staff. The social worker clinical reported [facility] and [facility] will have a bed for her after discharge. On interview I explained the patient that she needs to be compliant with medications in order to be discharged back to respite. She has no insight into her condition but she agreed to continue taking her medications. Her main concern was poor sleep and she agreed to take some lorazepam at night. She also will have a p.r.n. order and 1 time only p.r.n. oxycodone once a day. We will increase the ibuprofen up to 800 mg p.r.n.. Mental Status Exam Mental Status Exam Patient Appearance: Well Grooomed Patient Orientation: Person and Situation Level of Consciousness: Awake and Appropriate Patient Behavior: Guarded and Passive Mood Description: Withdrawn Affect Description: Constricted Patient Cognition Impaired: Yes Ability to Follow Directions: Fair Speech Pattern: Clear Hallucinations: None Delusions: Paranoid Ideation Thought Process: Distracted Judgement: Poor Diagnostics Vital Signs (24Hr): Vital Signs - 24 hr 07/02/22 18:00 07/03/22 09:10 Temperature 97.2 F 97.0 F Pulse Rate 68 66 Respiratory Rate 14 16 Blood Pressure 121/72 133/66 Pulse Oximetry 95 96 Oxygen Delivery Method Room Air Room Air Labs Results: 06/18/22 14:16 Medications Medications Current Medications Acetaminophen (Acetaminophen 325 Mg Tablet) 650 mg PO Q6H PRN PRN Reason: Headache/Pain Mild Scale (1-3) Last Admin: 06/30/22 18:33 Dose: 650 mg Al Hydroxide/Mg Hydroxide (Magnesium Hydrox/Alum Hydrox 30 Ml Oral.Susp) 30 ml PO Q6H PRN PRN Reason: Heartburn/Nausea Amlodipine Besylate (Amlodipine Besylate 2.5 Mg Tablet) 2.5 mg PO DAILY [facility]; Protocol Last Admin: 07/03/22 09:14 Dose: 2.5 mg Ferrous Sulfate (Ferrous Sulfate 324 Mg Tablet.) 324 mg PO DAILY [facility] Last Admin: 07/03/22 09:14 Dose: 324 mg Hydroxyzine HCl (Hydroxyzine Hcl 25 Mg Tablet) 25 mg PO Q6H PRN PRN Reason: Anxiety Ibuprofen (Ibuprofen 600 Mg Tablet) 600 mg PO Q6H PRN PRN Reason: Pain, Moderate (Pain Scale 4-6 Last Admin: 07/03/22 09:15 Dose: 600 mg Latanoprost (Latanoprost 0.005 % Ophth [place] 2.5 Ml Drops) 1 drop EYE-BOTH BEDTIME [facility] Last Admin: 07/02/22 20:47 Dose: 1 drop Levothyroxine Sodium (Levothyroxine Sodium 150 Mcg Tablet) 150 mcg PO DAILY [facility] Last Admin: 07/03/22 09:14 Dose: 150 mcg Magnesium Hydroxide (Milk Of Magnesia 30 Ml Oral.Susp) 30 ml PO DAILY PRN PRN Reason: Constipation Melatonin (Melatonin 3 Mg Tablet) 9 mg PO BEDTIME [facility] Last Admin: 07/02/22 20:46 Dose: 9 mg Multivitamins/Vitamin C (Multivitamin Tablet) 1 tab PO DAILY [facility] Last Admin: 07/03/22 09:14 Dose: 1 tab Nicotine (Nicotine 7 Mg Patch.Td24) 7 mg TRANSDERMA DAILY PRN PRN Reason: nicotine cravings Nicotine Polacrilex (Nicotine Polacrilex 2 Mg Gum) 2 mg BUCCAL Q2H PRN PRN Reason: smoking craving Last Admin: 06/18/22 14:22 Dose: 2 mg Olanzapine (Olanzapine 7.5 Mg Tablet) 15 mg PO BEDTIME [facility] Last Admin: 07/02/22 20:46 Dose: 15 mg Quetiapine Fumarate (Quetiapine Fumarate 25 Mg Tablet) 12.5 mg PO Q6H PRN PRN Reason: Anxiety Last Admin: 06/29/22 21:00 Dose: 12.5 mg Vitamin D (Cholecalciferol (Vitamin D3) 10 Mcg Tablet) 10 mcg PO DAILY [facility] Last Admin: 07/03/22 09:14 Dose: 10 mcg Allergies Allergies Allergy/AdvReac Type Severity Reaction Status Date / Time risperidone AdvReac Intermediate Hypotension Verified 06/16/22 15:00 fluoxetine [From Prozac] AdvReac Agitated Verified 06/16/22 15:00 Assessment & Plan Assessment & Plan (1) Schizo-affective schizophrenia, chronic condition with acute exacerbation: Status: Acute Code(s): F25.9 - Schizoaffective disorder, unspecified (2) Essential (primary) hypertension: Status: Acute Code(s): I10 - Essential (primary) hypertension (3) Hypothyroid: Status: Acute Code(s): E03.9 - Hypothyroidism, unspecified Plan 71 yo female w/ paranoia 06/23 says not on gabapentin for years; may consider discontinuing 06/24/22: MVI i tab daily Vitamin D3 10 mg daily 06/25/2022 Continue olanzapine try in get a better idea of patient's psychiatric history and specific behavior that caused admission Discontinue Gabapentin-pt reports she last took it in ~2006 and it was not helpful and precipitated a weight gain. 06/26/2022 Continue olanzapine encourage treatment acceptance trying clarify patient's history 06/27/2022 Continue olanzapine 10 mg at bedtime patient has limited insight denies psychiatric illness need for antipsychotics and apparently this has been an issue for many years. Although she had been at [facility] for over 6 months a probate Sexton was not obtained nor was she on a long-acting injectable which would seem to be Potentially problematic patient does have DMH 06/28/2022 Patient continues to be psychotic with paranoid concerns somewhat anxious and dysphoric limited insight. Agreeable to low-dose Seroquel 12.5 mg continue olanzapine 10 mg at bedtime. Coordinate care with transfer back to respite when stable. Patient would benefit from a long-acting injectable but is resistant to this recommendation 06/29 continue current medications. Increase olanzapine to 15mg po qhs. may be better than adding low dose seroquel 06/30 pt refusing her medications, paranoid 07/01 pt refusing PO meds 07/02 pt refusing PO meds 07/03 the patient took Zyprexa last night and we discussed discharge planning. She is fully aware that she needs to be fully compliant in order to discharge her. We are adding Ativan 1 mg p.o. q.h.s. and p.r.n. 0.5 b.i.d. also, oxycodone 5 mg p.o. q.h.s. for severe pain. Reason for contiued inpatient stay Substantial Risk for: inability to function, rapid decompensation and med/psych decompensation Time Spent With Patient Time: Total time managing care of this patient today __20__ minutes.
[2022-07-03] MEDS: oxyCODONE HCl Immed Release 5 MG TABLET PO (16:33)
[2022-07-03] MEDS: LORazepam 0.5 MG TABLET PO (16:35)
[2022-07-03 18:00] VITALS: BP 129/54; PULSE 69; RESP 18; TEMP 36.9; O2SAT 96
[2022-07-03] MEDS: LORazepam 1 MG TABLET PO (19:57)
[2022-07-03] MEDS: Latanoprost 0.005 % Ophth Sol 2.5 ML DROPS 1 DROP EYE-BOTH (19:58)
[2022-07-03] MEDS: OLANZapine 7.5 MG TABLET 15 MG PO (20:48)
[2022-07-04 08:15] VITALS: BP 153/71; PULSE 80; RESP 16; TEMP 36.4; O2SAT 98
[2022-07-04] MEDS: Ibuprofen 600 MG TABLET PO (08:18)
[2022-07-04] MEDS: Levothyroxine Sodium 150 MCG TABLET PO (08:19)
[2022-07-04] MEDS: Multivitamin TABLET 1 TAB PO (08:19)
[2022-07-04] MEDS: Ferrous Sulfate 324 MG TABLET.DR PO (08:19)
[2022-07-04] MEDS: amLODIPine Besylate 2.5 MG TABLET PO (08:19)
[2022-07-04] MEDS: oxyCODONE HCl Immed Release 5 MG TABLET PO (10:39)
[2022-07-04] MEDS: LORazepam 0.5 MG TABLET PO (10:40)
--- NOTE | 2022-07-04 14:23 | P.PNPSI_ITS ---
Subjective Subjective Date of Service: 07/04/22 Reason For Visit: psychosis hallucinations threatening behavior Subjective Notes: Conditional Voluntary Interim History: The nursing staff reported that the patient has said that they were giving care placebo instead of medications. She took her Zyprexa, her p.r.n. Percocet and lorazepam in. According to the staff she slept last night but on interview the patient denies still insomnia. The occupational therapist reported that she has not participating groups. At this moment, the patient is compliant with treatment and she remains internally preoccupied but able to do her own ADLS Mental Status Exam Mental Status Exam Patient Appearance: Well Grooomed Patient Orientation: Person and Situation Level of Consciousness: Awake and Appropriate Patient Behavior: Guarded Mood Description: Calm Affect Description: Constricted Patient Cognition Impaired: Yes Ability to Follow Directions: Fair Speech Pattern: Clear Hallucinations: None Delusions: Not Present Thought Process: Distracted Thought Content: positive for Circumstantial Judgement: Fair Diagnostics Vital Signs (24Hr): Vital Signs - 24 hr 07/03/22 18:00 Temperature 98.4 F Pulse Rate 69 Respiratory Rate 18 Blood Pressure 129/54 L Pulse Oximetry 96 Oxygen Delivery Method Room Air Labs Results: 06/18/22 14:16 Medications Medications Current Medications Acetaminophen (Acetaminophen 325 Mg Tablet) 650 mg PO Q6H PRN PRN Reason: Headache/Pain Mild Scale (1-3) Last Admin: 06/30/22 18:33 Dose: 650 mg Al Hydroxide/Mg Hydroxide (Magnesium Hydrox/Alum Hydrox 30 Ml Oral.Susp) 30 ml PO Q6H PRN PRN Reason: Heartburn/Nausea Amlodipine Besylate (Amlodipine Besylate 2.5 Mg Tablet) 2.5 mg PO DAILY [facility]; Protocol Last Admin: 07/04/22 08:19 Dose: 2.5 mg Ferrous Sulfate (Ferrous Sulfate 324 Mg Tablet.Dr) 324 mg PO DAILY [facility] Last Admin: 07/04/22 08:19 Dose: 324 mg Hydroxyzine HCl (Hydroxyzine Hcl 25 Mg Tablet) 25 mg PO Q6H PRN PRN Reason: Anxiety Ibuprofen (Ibuprofen 800 Mg Tablet) 800 mg PO Q6H PRN PRN Reason: Pain, Moderate (Pain Scale 4-6 Latanoprost (Latanoprost 0.005 % Ophth [place] 2.5 Ml Drops) 1 drop EYE-BOTH BEDTIME [facility] Last Admin: 07/03/22 19:58 Dose: 1 drop Levothyroxine Sodium (Levothyroxine Sodium 150 Mcg Tablet) 150 mcg PO DAILY [facility] Last Admin: 07/04/22 08:19 Dose: 150 mcg Lorazepam (Lorazepam 1 Mg Tablet) 1 mg PO BEDTIME [facility] Last Admin: 07/03/22 19:57 Dose: 1 mg Lorazepam (Lorazepam 0.5 Mg Tablet) 0.5 mg PO BID PRN PRN Reason: Anxiety Last Admin: 07/04/22 10:40 Dose: 0.5 mg Magnesium Hydroxide (Milk Of Magnesia 30 Ml Oral.Susp) 30 ml PO DAILY PRN PRN Reason: Constipation Melatonin (Melatonin 3 Mg Tablet) 9 mg PO BEDTIME PRN PRN Reason: insomnia Multivitamins/Vitamin C (Multivitamin Tablet) 1 tab PO DAILY [facility] Last Admin: 07/04/22 08:19 Dose: 1 tab Nicotine (Nicotine 7 Mg Patch.Td24) 7 mg TRANSDERMA DAILY PRN PRN Reason: nicotine cravings Nicotine Polacrilex (Nicotine Polacrilex 2 Mg Gum) 2 mg BUCCAL Q2H PRN PRN Reason: smoking craving Last Admin: 06/18/22 14:22 Dose: 2 mg Olanzapine (Olanzapine 7.5 Mg Tablet) 15 mg PO BEDTIME [facility] Last Admin: 07/03/22 20:48 Dose: 15 mg Oxycodone HCl (Oxycodone Hcl Immed Release 5 Mg Tablet) 5 mg PO DAILY PRN PRN Reason: Pain, Severe (Pain Scale 7-10) Last Admin: 07/04/22 10:39 Dose: 5 mg Quetiapine Fumarate (Quetiapine Fumarate 25 Mg Tablet) 12.5 mg PO Q6H PRN PRN Reason: Anxiety Last Admin: 06/29/22 21:00 Dose: 12.5 mg Vitamin D (Cholecalciferol (Vitamin D3) 10 Mcg Tablet) 10 mcg PO DAILY [facility] Last Admin: 07/04/22 08:23 Dose: Not Given Allergies Allergies Allergy/AdvReac Type Severity Reaction Status Date / Time risperidone AdvReac Intermediate Hypotension Verified 06/16/22 15:00 fluoxetine [From Prozac] AdvReac Agitated Verified 06/16/22 15:00 Assessment & Plan Assessment & Plan (1) Schizo-affective schizophrenia, chronic condition with acute exacerbation: Status: Acute Code(s): F25.9 - Schizoaffective disorder, unspecified (2) Essential (primary) hypertension: Status: Acute Code(s): I10 - Essential (primary) hypertension (3) Hypothyroid: Status: Acute Code(s): E03.9 - Hypothyroidism, unspecified Plan 71 yo female w/ paranoia 06/23 says not on gabapentin for years; may consider discontinuing 06/24/22: MVI i tab daily Vitamin D3 10 mg daily 06/25/2022 Continue olanzapine try in get a better idea of patient's psychiatric history and specific behavior that caused admission Discontinue Gabapentin-pt reports she last took it in ~2006 and it was not helpful and precipitated a weight gain. 06/26/2022 Continue olanzapine encourage treatment acceptance trying clarify patient's history 06/27/2022 Continue olanzapine 10 mg at bedtime patient has limited insight denies psychiatric illness need for antipsychotics and apparently this has been an issue for many years. Although she had been at [facility] for over 6 months a probate [place] was not obtained nor was she on a long-acting injectable which would seem to be Potentially problematic patient does have DMH 06/28/2022 Patient continues to be psychotic with paranoid concerns somewhat anxious and dysphoric limited insight. Agreeable to low-dose Seroquel 12.5 mg continue olanzapine 10 mg at bedtime. Coordinate care with transfer [facility] to [facility] when stable. Patient would benefit from a long-acting injectable but is resistant to this recommendation 06/29 continue current medications. Increase olanzapine to 15mg po qhs. may be better than adding low dose seroquel 06/30 pt refusing her medications, paranoid 07/01 pt refusing PO meds 07/02 pt refusing PO meds 07/03 the patient took Zyprexa last night and we discussed discharge planning. She is fully aware that she needs to be fully compliant in order to discharge her. We are adding Ativan 1 mg p.o. q.h.s. and p.r.n. 0.5 b.i.d. also, oxycodone 5 mg p.o. q.h.s. for severe pain. 07/04 continue same treatment Reason for contiued inpatient stay Substantial Risk for: inability to function, rapid decompensation and med/psych decompensation Time Spent With Patient Time: Total time managing care of this patient today ____ minutes.
[2022-07-04 18:00] VITALS: BP 138/69; PULSE 66; RESP 16; TEMP 36.2; O2SAT 97
[2022-07-04] MEDS: Latanoprost 0.005 % Ophth Sol 2.5 ML DROPS 1 DROP EYE-BOTH (20:39)
[2022-07-04] MEDS: Ibuprofen 800 MG TABLET PO (20:40)
[2022-07-04] MEDS: LORazepam 1 MG TABLET PO (20:40)
[2022-07-04] MEDS: OLANZapine 7.5 MG TABLET 15 MG PO (20:41)
[2022-07-05 06:00] VITALS: BP 131/82; PULSE 70; RESP 16; TEMP 36.6; O2SAT 98
[2022-07-05] MEDS: amLODIPine Besylate 2.5 MG TABLET PO (10:40)
[2022-07-05] MEDS: Cholecalciferol (Vitamin D3) 10 MCG TABLET PO (10:41)
[2022-07-05] MEDS: LORazepam 0.5 MG TABLET PO ×2 (10:41→18:07)
[2022-07-05] MEDS: oxyCODONE HCl Immed Release 5 MG TABLET PO (10:41)
[2022-07-05] MEDS: Levothyroxine Sodium 150 MCG TABLET PO (10:41)
[2022-07-05] MEDS: Ferrous Sulfate 324 MG TABLET.DR PO (10:42)
[2022-07-05] MEDS: Multivitamin TABLET 1 TAB PO (10:42)
--- NOTE | 2022-07-05 16:08 | HO.PSYCHPN ---
Subjective Subjective Date of Service: 07/05/22 Reason For Visit: psychosis hallucinations threatening behavior Subjective Notes: Conditional Voluntary Interim History: The nursing staff reported the patient has been fully compliant with treatment she slept all night. Occupational therapist reported that she has a little more participative in groups with a light irritability but easily redirectable. The health social work professor reported that she kept called the [facility] but so far they have not answer. On interview the patient denies new symptoms. Mental Status Exam Mental Status Exam Patient Appearance: Well Grooomed Patient Orientation: Person and Situation Level of Consciousness: Awake and Appropriate Patient Behavior: Guarded and Passive Mood Description: Withdrawn Affect Description: Constricted Patient Cognition Impaired: Yes Ability to Follow Directions: Good Speech Pattern: Clear Hallucinations: None Delusions: Not Present Thought Process: Linear Thought Content: positive for [place] and positive for Circumstantial Judgement: Fair Diagnostics Vital Signs (24Hr): Vital Signs - 24 hr 07/04/22 18:00 07/05/22 06:00 Temperature 97.2 F 97.8 F Pulse Rate 66 70 Respiratory Rate 16 16 Blood Pressure 138/69 131/82 Pulse Oximetry 97 98 Oxygen Delivery Method Room Air Room Air Labs Results: 06/18/22 14:16 Medications Medications Current Medications Acetaminophen (Acetaminophen 325 Mg Tablet) 650 mg PO Q6H PRN PRN Reason: Headache/Pain Mild Scale (1-3) Last Admin: 06/30/22 18:33 Dose: 650 mg Al Hydroxide/Mg Hydroxide (Magnesium Hydrox/Alum Hydrox 30 Ml Oral.Susp) 30 ml PO Q6H PRN PRN Reason: Heartburn/Nausea Amlodipine Besylate (Amlodipine Besylate 2.5 Mg Tablet) 2.5 mg PO DAILY [facility]; Protocol Last Admin: 07/05/22 10:40 Dose: 2.5 mg Ferrous Sulfate (Ferrous Sulfate 324 Mg Tablet.) 324 mg PO DAILY [facility] Last Admin: 07/05/22 10:42 Dose: 324 mg Hydroxyzine HCl (Hydroxyzine Hcl 25 Mg Tablet) 25 mg PO Q6H PRN PRN Reason: Anxiety Ibuprofen (Ibuprofen 800 Mg Tablet) 800 mg PO Q6H PRN PRN Reason: Pain, Moderate (Pain Scale 4-6 Last Admin: 07/04/22 20:40 Dose: 800 mg Latanoprost (Latanoprost 0.005 % Ophth [place] 2.5 Ml Drops) 1 drop EYE-BOTH BEDTIME [facility] Last Admin: 07/04/22 20:39 Dose: 1 drop Levothyroxine Sodium (Levothyroxine Sodium 150 Mcg Tablet) 150 mcg PO DAILY [facility] Last Admin: 07/05/22 10:41 Dose: 150 mcg Lorazepam (Lorazepam 1 Mg Tablet) 1 mg PO BEDTIME [facility] Last Admin: 07/04/22 20:40 Dose: 1 mg Lorazepam (Lorazepam 0.5 Mg Tablet) 0.5 mg PO BID PRN PRN Reason: Anxiety Last Admin: 07/05/22 10:41 Dose: 0.5 mg Magnesium Hydroxide (Milk Of Magnesia 30 Ml Oral.Susp) 30 ml PO DAILY PRN PRN Reason: Constipation Melatonin (Melatonin 3 Mg Tablet) 9 mg PO BEDTIME PRN PRN Reason: insomnia Multivitamins/Vitamin C (Multivitamin Tablet) 1 tab PO DAILY [facility] Last Admin: 07/05/22 10:42 Dose: 1 tab Nicotine (Nicotine 7 Mg Patch.Td24) 7 mg TRANSDERMA DAILY PRN PRN Reason: nicotine cravings Nicotine Polacrilex (Nicotine Polacrilex 2 Mg Gum) 2 mg BUCCAL Q2H PRN PRN Reason: smoking craving Last Admin: 06/18/22 14:22 Dose: 2 mg Olanzapine (Olanzapine 7.5 Mg Tablet) 15 mg PO BEDTIME [facility] Last Admin: 07/04/22 20:41 Dose: 15 mg Oxycodone HCl (Oxycodone Hcl Immed Release 5 Mg Tablet) 5 mg PO DAILY PRN PRN Reason: Pain, Severe (Pain Scale 7-10) Last Admin: 07/05/22 10:41 Dose: 5 mg Quetiapine Fumarate (Quetiapine Fumarate 25 Mg Tablet) 12.5 mg PO Q6H PRN PRN Reason: Anxiety Last Admin: 06/29/22 21:00 Dose: 12.5 mg Vitamin D (Cholecalciferol (Vitamin D3) 10 Mcg Tablet) 10 mcg PO DAILY [facility] Last Admin: 07/05/22 10:41 Dose: 10 mcg Allergies Allergies Allergy/AdvReac Type Severity Reaction Status Date / Time risperidone AdvReac Intermediate Hypotension Verified 06/16/22 15:00 fluoxetine [From Prozac] AdvReac Agitated Verified 06/16/22 15:00 Assessment & Plan Assessment & Plan (1) Schizo-affective schizophrenia, chronic condition with acute exacerbation: Status: Acute Code(s): F25.9 - Schizoaffective disorder, unspecified (2) Essential (primary) hypertension: Status: Acute Code(s): I10 - Essential (primary) hypertension (3) Hypothyroid: Status: Acute Code(s): E03.9 - Hypothyroidism, unspecified Plan 71 yo female w/ paranoia 06/23 says not on gabapentin for years; may consider discontinuing 06/24/22: MVI i tab daily Vitamin D3 10 mg daily 06/25/2022 Continue olanzapine try in get a better idea of patient's psychiatric history and specific behavior that caused admission Discontinue Gabapentin-pt reports she last took it in ~2006 and it was not helpful and precipitated a weight gain. 06/26/2022 Continue olanzapine encourage treatment acceptance trying clarify patient's history 06/27/2022 Continue olanzapine 10 mg at bedtime patient has limited insight denies psychiatric illness need for antipsychotics and apparently this has been an issue for many years. Although she had been at [facility] for over 6 months a probate [place] was not obtained nor was she on a long-acting injectable which would seem to be Potentially problematic patient does have DMH 06/28/2022 Patient continues to be psychotic with paranoid concerns somewhat anxious and dysphoric limited insight. Agreeable to low-dose Seroquel 12.5 mg continue olanzapine 10 mg at bedtime. Coordinate care with transfer back to [facility] when stable. Patient would benefit from a long-acting injectable but is resistant to this recommendation 06/29 continue current medications. Increase olanzapine to 15mg po qhs. may be better than adding low dose seroquel 06/30 pt refusing her medications, paranoid 07/01 pt refusing PO meds 07/02 pt refusing PO meds 07/03 the patient took Zyprexa last night and we discussed discharge planning. She is fully aware that she needs to be fully compliant in order to discharge her. We are adding Ativan 1 mg p.o. q.h.s. and p.r.n. 0.5 b.i.d. also, oxycodone 5 mg p.o. q.h.s. for severe pain. 07/04 continue same treatment 07/05 continue with same treatment Reason for contiued inpatient stay Substantial Risk for: inability to function, rapid decompensation and med/psych decompensation Time Spent With Patient Time: Total time managing care of this patient today ____ minutes.
[2022-07-05] MEDS: Ibuprofen 800 MG TABLET PO (18:07)
[2022-07-05 19:02] VITALS: BP 172/79; PULSE 65; RESP 18; TEMP 36.5; O2SAT 98
[2022-07-05] MEDS: OLANZapine 7.5 MG TABLET 15 MG PO (21:04)
[2022-07-05] MEDS: LORazepam 1 MG TABLET PO (21:04)
[2022-07-05] MEDS: Latanoprost 0.005 % Ophth Sol 2.5 ML DROPS 1 DROP EYE-BOTH (21:05)
[2022-07-06 09:30] VITALS: BP 162/78; PULSE 73; RESP 17; TEMP 35.9; O2SAT 98
[2022-07-06] MEDS: Multivitamin TABLET 1 TAB PO (09:56)
[2022-07-06] MEDS: Cholecalciferol (Vitamin D3) 10 MCG TABLET PO (09:56)
[2022-07-06] MEDS: Ferrous Sulfate 324 MG TABLET.DR PO (09:56)
[2022-07-06] MEDS: Levothyroxine Sodium 150 MCG TABLET PO (09:56)
[2022-07-06] MEDS: amLODIPine Besylate 2.5 MG TABLET PO (09:56)
[2022-07-06] MEDS: Ibuprofen 800 MG TABLET PO (10:06)
[2022-07-06] MEDS: LORazepam 0.5 MG TABLET PO (10:06)
--- NOTE | 2022-07-06 15:00 | P.PNPSI_ITS ---
Subjective Subjective Date of Service: 07/06/22 Reason For Visit: psychosis hallucinations threatening behavior Subjective Notes: Conditional Voluntary Interim History: The nursing staff reported the patient had been internally preoccupied but she was not verbalizing auditory hallucinations. She looks suspicious but easily redirectable. On interview the patient reported that she wants to have a smoking break explained her that if it is not legal. She was able to understand. We discussed with the team the possibility of discharge her early next week. Mental Status Exam Mental Status Exam Patient Appearance: Well Grooomed and Appropriate Patient Orientation: Person Level of Consciousness: Awake and Appropriate Patient Behavior: Guarded and Passive Mood Description: Withdrawn Affect Description: Constricted Ability to Follow Directions: Good Speech Pattern: Clear Hallucinations: None Delusions: Paranoid Ideation Thought Process: Distracted Thought Content: positive for Circumstantial Judgement: Fair Diagnostics Vital Signs (24Hr): Vital Signs - 24 hr 07/05/22 19:02 07/06/22 09:30 Temperature 97.7 F 96.6 F L Pulse Rate 65 73 Respiratory Rate 18 17 Blood Pressure 172/79 H 162/78 H Pulse Oximetry 98 98 Oxygen Delivery Method Room Air Room Air Labs Results: 06/18/22 14:16 Medications Medications Current Medications Acetaminophen (Acetaminophen 325 Mg Tablet) 650 mg PO Q6H PRN PRN Reason: Headache/Pain Mild Scale (1-3) Last Admin: 06/30/22 18:33 Dose: 650 mg Al Hydroxide/Mg Hydroxide (Magnesium Hydrox/Alum Hydrox 30 Ml Oral.Susp) 30 ml PO Q6H PRN PRN Reason: Heartburn/Nausea Amlodipine Besylate (Amlodipine Besylate 2.5 Mg Tablet) 2.5 mg PO DAILY [facility]; Protocol Last Admin: 07/06/22 09:56 Dose: 2.5 mg Ferrous Sulfate (Ferrous Sulfate 324 Mg Tablet.) 324 mg PO DAILY [facility] Last Admin: 07/06/22 09:56 Dose: 324 mg Hydroxyzine HCl (Hydroxyzine Hcl 25 Mg Tablet) 25 mg PO Q6H PRN PRN Reason: Anxiety Ibuprofen (Ibuprofen 800 Mg Tablet) 800 mg PO Q6H PRN PRN Reason: Pain, Moderate (Pain Scale 4-6 Last Admin: 07/06/22 10:06 Dose: 800 mg Latanoprost (Latanoprost 0.005 % Ophth [place] 2.5 Ml Drops) 1 drop EYE-BOTH BEDTIME [facility] Last Admin: 07/05/22 21:05 Dose: 1 drop Levothyroxine Sodium (Levothyroxine Sodium 150 Mcg Tablet) 150 mcg PO DAILY [facility] Last Admin: 07/06/22 09:56 Dose: 150 mcg Lorazepam (Lorazepam 1 Mg Tablet) 1 mg PO BEDTIME [facility] Last Admin: 07/05/22 21:04 Dose: 1 mg Lorazepam (Lorazepam 0.5 Mg Tablet) 0.5 mg PO BID PRN PRN Reason: Anxiety Last Admin: 07/06/22 10:06 Dose: 0.5 mg Magnesium Hydroxide (Milk Of Magnesia 30 Ml Oral.Susp) 30 ml PO DAILY PRN PRN Reason: Constipation Melatonin (Melatonin 3 Mg Tablet) 9 mg PO BEDTIME PRN PRN Reason: insomnia Multivitamins/Vitamin C (Multivitamin Tablet) 1 tab PO DAILY [facility] Last Admin: 07/06/22 09:56 Dose: 1 tab Nicotine (Nicotine 7 Mg Patch.Td24) 7 mg TRANSDERMA DAILY PRN PRN Reason: nicotine cravings Nicotine Polacrilex (Nicotine Polacrilex 2 Mg Gum) 2 mg BUCCAL Q2H PRN PRN Reason: smoking craving Last Admin: 06/18/22 14:22 Dose: 2 mg Olanzapine (Olanzapine 7.5 Mg Tablet) 15 mg PO BEDTIME [facility] Last Admin: 07/05/22 21:04 Dose: 15 mg Oxycodone HCl (Oxycodone Hcl Immed Release 5 Mg Tablet) 5 mg PO DAILY PRN PRN Reason: Pain, Severe (Pain Scale 7-10) Last Admin: 07/05/22 10:41 Dose: 5 mg Quetiapine Fumarate (Quetiapine Fumarate 25 Mg Tablet) 12.5 mg PO Q6H PRN PRN Reason: Anxiety Last Admin: 06/29/22 21:00 Dose: 12.5 mg Vitamin D (Cholecalciferol (Vitamin D3) 10 Mcg Tablet) 10 mcg PO DAILY [facility] Last Admin: 07/06/22 09:56 Dose: 10 mcg Allergies Allergies Allergy/AdvReac Type Severity Reaction Status Date / Time risperidone AdvReac Intermediate Hypotension Verified 06/16/22 15:00 fluoxetine [From Prozac] AdvReac Agitated Verified 06/16/22 15:00 Assessment & Plan Assessment & Plan (1) Schizo-affective schizophrenia, chronic condition with acute exacerbation: Status: Acute Code(s): F25.9 - Schizoaffective disorder, unspecified (2) Essential (primary) hypertension: Status: Acute Code(s): I10 - Essential (primary) hypertension (3) Hypothyroid: Status: Acute Code(s): E03.9 - Hypothyroidism, unspecified Plan 71 yo female w/ paranoia 06/23 says not on gabapentin for years; may consider discontinuing 06/24/22: MVI i tab daily Vitamin D3 10 mg daily 06/25/2022 Continue olanzapine try in get a better idea of patient's psychiatric history and specific behavior that caused admission Discontinue Gabapentin-pt reports she last took it in ~2006 and it was not helpful and precipitated a weight gain. 06/26/2022 Continue olanzapine encourage treatment acceptance trying clarify patient's history 06/27/2022 Continue olanzapine 10 mg at bedtime patient has limited insight denies ps ychiatric illness need for antipsychotics and apparently this has been an issue for many years. Although she had been at [facility] for over 6 months a probate [place] was not obtained nor was she on a long-acting injectable which would seem to be Potentially problematic patient does have DMH 06/28/2022 Patient continues to be psychotic with paranoid concerns somewhat anxious and dysphoric limited insight. Agreeable to low-dose Seroquel 12.5 mg continue olanzapine 10 mg at bedtime. Coordinate care with transfer back to [facility] when stable. Patient would benefit from a long-acting injectable but is resistant to this recommendation 06/29 continue current medications. Increase olanzapine to 15mg po qhs. may be better than adding low dose seroquel 06/30 pt refusing her medications, paranoid 07/01 pt refusing PO meds 07/02 pt refusing PO meds 07/03 the patient took Zyprexa last night and we discussed discharge planning. She is fully aware that she needs to be fully compliant in order to discharge her. We are adding Ativan 1 mg p.o. q.h.s. and p.r.n. 0.5 b.i.d. also, oxycodone 5 mg p.o. q.h.s. for severe pain. 07/04 continue same treatment 07/05 continue with same treatment 07/06 continue same treatment Reason for contiued inpatient stay Substantial Risk for: inability to function, rapid decompensation and med/psych decompensation Time Spent With Patient Time: Total time managing care of this patient today ____ minutes.
[2022-07-06 18:00] VITALS: BP 149/73; PULSE 70; RESP 12; TEMP 36.6; O2SAT 98
[2022-07-06] MEDS: OLANZapine 7.5 MG TABLET 15 MG PO (20:33)
[2022-07-06] MEDS: Latanoprost 0.005 % Ophth Sol 2.5 ML DROPS 1 DROP EYE-BOTH (20:34)
[2022-07-06] MEDS: LORazepam 1 MG TABLET PO (20:34)
[2022-07-07 06:00] VITALS: BP 143/76; PULSE 70; RESP 16; TEMP 36.6; O2SAT 98
[2022-07-07] MEDS: Levothyroxine Sodium 150 MCG TABLET PO (09:40)
[2022-07-07] MEDS: Ferrous Sulfate 324 MG TABLET.DR PO (09:40)
[2022-07-07] MEDS: Cholecalciferol (Vitamin D3) 10 MCG TABLET PO (09:40)
[2022-07-07] MEDS: Multivitamin TABLET 1 TAB PO (09:40)
[2022-07-07] MEDS: amLODIPine Besylate 2.5 MG TABLET PO (09:40)
--- NOTE | 2022-07-07 14:00 | HO.PSYCHPN ---
Subjective Subjective Date of Service: 07/07/22 Reason For Visit: psychosis hallucinations threatening behavior Interim History: Nursing report she has been mostly compliant. She has been taking her medications. She was seen in her room. She was resting. Opened her eyes for this examiner. Reported she feels tired and dizzy after taking her medications. She was guarded. Denied AVH. Denies SI. Mental Status Exam Mental Status Exam Narrative: Appearance: casually groomed, fair hygiene, in NAD Behavior: guarded Psychomotor: no overt agitation or retardation noted Speech: mostly clear, regular rate in response, spontaneous TP: more linear TC: paranoia about her identity being stolen, and medication here not the ones Mood: depressed Affect: guarded, and constricted AH/VH: denies but appears internally preoccupied Delusions: paranoid delusions Insight/judgment: poor x 2. Memory/cog: alert, oriented to place, not situation Patient Appearance: Well Grooomed and Appropriate Patient Orientation: Person Level of Consciousness: Awake and Appropriate Patient Behavior: Guarded and Passive Mood Description: Withdrawn Affect Description: Constricted Patient Cognition Impaired: Yes Ability to Follow Directions: Good Speech Pattern: Clear Memory Description: Episodic Impaired Diagnostics Vital Signs (24Hr): Vital Signs - 24 hr 07/06/22 18:00 07/07/22 06:00 Temperature 97.9 F 97.8 F Pulse Rate 70 70 Respiratory Rate 12 16 Blood Pressure 149/73 H 143/76 H Pulse Oximetry 98 98 Oxygen Delivery Method Room Air Room Air Labs Results: 06/18/22 14:16 Medications Medications Current Medications Acetaminophen (Acetaminophen 325 Mg Tablet) 650 mg PO Q6H PRN PRN Reason: Headache/Pain Mild Scale (1-3) Last Admin: 06/30/22 18:33 Dose: 650 mg Al Hydroxide/Mg Hydroxide (Magnesium Hydrox/Alum Hydrox 30 Ml Oral.Susp) 30 ml PO Q6H PRN PRN Reason: Heartburn/Nausea Amlodipine Besylate (Amlodipine Besylate 2.5 Mg Tablet) 2.5 mg PO DAILY JAVIER; Protocol Last Admin: 07/07/22 09:40 Dose: 2.5 mg Ferrous Sulfate (Ferrous Sulfate 324 Mg Tablet.) 324 mg PO DAILY [facility] Last Admin: 07/07/22 09:40 Dose: 324 mg Hydroxyzine HCl (Hydroxyzine Hcl 25 Mg Tablet) 25 mg PO Q6H PRN PRN Reason: Anxiety Ibuprofen (Ibuprofen 800 Mg Tablet) 800 mg PO Q6H PRN PRN Reason: Pain, Moderate (Pain Scale 4-6 Last Admin: 07/06/22 10:06 Dose: 800 mg Latanoprost (Latanoprost 0.005 % Ophth [place] 2.5 Ml Drops) 1 drop EYE-BOTH BEDTIME [facility] Last Admin: 07/06/22 20:34 Dose: 1 drop Levothyroxine Sodium (Levothyroxine Sodium 150 Mcg Tablet) 150 mcg PO DAILY [facility] [place] Last Admin: 07/07/22 09:40 Dose: 150 mcg Lorazepam (Lorazepam 1 Mg Tablet) 1 mg PO BEDTIME [facility] [place] Last Admin: 07/06/22 20:34 Dose: 1 mg Lorazepam (Lorazepam 0.5 Mg Tablet) 0.5 mg PO BID PRN PRN Reason: Anxiety Last Admin: 07/06/22 10:06 Dose: 0.5 mg Magnesium Hydroxide (Milk Of Magnesia 30 Ml Oral.Susp) 30 ml PO DAILY PRN PRN Reason: Constipation Melatonin (Melatonin 3 Mg Tablet) 9 mg PO BEDTIME PRN PRN Reason: insomnia Multivitamins/Vitamin C (Multivitamin Tablet) 1 tab PO DAILY [facility] [place] Last Admin: 07/07/22 09:40 Dose: 1 tab Nicotine (Nicotine 7 Mg Patch.Td24) 7 mg TRANSDERMA DAILY PRN PRN Reason: nicotine cravings Nicotine Polacrilex (Nicotine Polacrilex 2 Mg Gum) 2 mg BUCCAL Q2H PRN PRN Reason: smoking craving Last Admin: 06/18/22 14:22 Dose: 2 mg Olanzapine (Olanzapine 7.5 Mg Tablet) 15 mg PO BEDTIME [facility] [place] Last Admin: 07/06/22 20:33 Dose: 15 mg Oxycodone HCl (Oxycodone Hcl Immed Release 5 Mg Tablet) 5 mg PO DAILY PRN PRN Reason: Pain, Severe (Pain Scale 7-10) Last Admin: 07/05/22 10:41 Dose: 5 mg Quetiapine Fumarate (Quetiapine Fumarate 25 Mg Tablet) 12.5 mg PO Q6H PRN PRN Reason: Anxiety Last Admin: 06/29/22 21:00 Dose: 12.5 mg Vitamin D (Cholecalciferol (Vitamin D3) 10 Mcg Tablet) 10 mcg PO DAILY [facility] [place] Last Admin: 07/07/22 09:40 Dose: 10 mcg Allergies Allergies Allergy/AdvReac Type Severity Reaction Status Date / Time risperidone AdvReac Intermediate Hypotension Verified 06/16/22 15:00 fluoxetine [From Prozac] AdvReac Agitated Verified 06/16/22 15:00 Assessment & Plan Assessment & Plan (1) Schizo-affective schizophrenia, chronic condition with acute exacerbation: Status: Acute Code(s): F25.9 - Schizoaffective disorder, unspecified (2) Essential (primary) hypertension: Status: Acute Code(s): I10 - Essential (primary) hypertension (3) Hypothyroid: Status: Acute Code(s): E03.9 - Hypothyroidism, unspecified Plan 71 yo female w/ paranoia 06/23 says not on gabapentin for years; may consider discontinuing 06/24/22: MVI i tab daily Vitamin D3 10 mg daily 06/25/2022 Continue olanzapine try in get a better idea of patient's psychiatric history and specific behavior that caused admission Discontinue Gabapentin-pt reports she last took it in ~2006 and it was not helpful and precipitated a weight gain. 06/26/2022 Continue olanzapine encourage treatment acceptance trying clarify patient's history 06/27/2022 Continue olanzapine 10 mg at bedtime patient has limited insight denies psychiatric illness need for antipsychotics and apparently this has been an issue for many years. Although she had been at [facility] for over 6 months a probate Se[place] was not obtained nor was she on a long-acting injectable which would seem to be Potentially problematic patient does have DM 06/28/2022 Patient continues to be psychotic with paranoid concerns somewhat anxious and dysphoric limited insight. Agreeable to low-dose Seroquel 12.5 mg continue olanzapine 10 mg at bedtime. Coordinate care with transfer back to [facility] when stable. Patient would benefit from a long-acting injectable but is resistant to this recommendation 06/29 continue current medications. Increase olanzapine to 15mg po qhs. may be better than adding low dose seroquel 06/30 pt refusing her medications, paranoid 07/01 pt refusing PO meds 07/02 pt refusing PO meds 07/03 the patient took Zyprexa last night and we discussed discharge planning. She is fully aware that she needs to be fully compliant in order to discharge her. We are adding Ativan 1 mg p.o. q.h.s. and p.r.n. 0.5 b.i.d. also, oxycodone 5 mg p.o. q.h.s. for severe pain. 07/04 continue same treatment 07/05 continue with same treatment 07/06 continue same treatment 07/07 continue same treatment Reason for contiued inpatient stay Substantial Risk for: harm to others, inability to function and rapid decompensation Time Spent With Patient Time: Total time managing care of this patient today ____ minutes.
[2022-07-07] MEDS: OLANZapine 7.5 MG TABLET 15 MG PO (19:44)
[2022-07-07] MEDS: LORazepam 1 MG TABLET PO (19:44)
[2022-07-07] MEDS: Latanoprost 0.005 % Ophth Sol 2.5 ML DROPS 1 DROP EYE-BOTH (19:45)
[2022-07-08 06:00] VITALS: BP 145/66; PULSE 78; RESP 17; TEMP 36.2; O2SAT 94
--- NOTE | 2022-07-08 11:45 | HO.PSYCHPN ---
Subjective Subjective Date of Service: 07/08/22 Reason For Visit: psychosis hallucinations threatening behavior Interim History: Nursing report she has been compliant. She has been taking her medications. She was seen in her room. She had taken a shower. She says she is feeling better. She is seen in the milieu more. She is eating and sleeping well. She denied AVH. Denies SI. Medication Compliance: Yes Mental Status Exam Mental Status Exam Narrative: Appearance: casually groomed, fair hygiene, in NAD Behavior: guarded Psychomotor: no overt agitation or retardation noted Speech: mostly clear, regular rate in response, spontaneous TP: more linear TC: paranoia about her identity being stolen, and medication here not the ones Mood: depressed Affect: guarded, and constricted AH/VH: denies but appears internally preoccupied Delusions: paranoid delusions Insight/judgment: poor x 2. Memory/cog: alert, oriented to place, not situation Patient Appearance: Well Grooomed and Appropriate Patient Orientation: Person Level of Consciousness: Awake and Appropriate Patient Behavior: Guarded and Passive Mood Description: Withdrawn Affect Description: Constricted Patient Cognition Impaired: Yes Ability to Follow Directions: Good Speech Pattern: Clear Memory Description: Episodic Impaired Diagnostics Vital Signs (24Hr): Vital Signs - 24 hr 07/08/22 06:00 Temperature 97.1 F Pulse Rate 78 Respiratory Rate 17 Blood Pressure 145/66 H Pulse Oximetry 94 Oxygen Delivery Method Room Air Labs Results: 06/18/22 14:16 Medications Medications Current Medications Acetaminophen (Acetaminophen 325 Mg Tablet) 650 mg PO Q6H PRN PRN Reason: Headache/Pain Mild Scale (1-3) Last Admin: 06/30/22 18:33 Dose: 650 mg Al Hydroxide/Mg Hydroxide (Magnesium Hydrox/Alum Hydrox 30 Ml Oral.Susp) 30 ml PO Q6H PRN PRN Reason: Heartburn/Nausea Amlodipine Besylate (Amlodipine Besylate 2.5 Mg Tablet) 2.5 mg PO DAILY [facility]IER; Protocol Last Admin: 07/08/22 14:23 Dose: Not Given Ferrous Sulfate (Ferrous Sulfate 324 Mg Tablet.) 324 mg PO DAILY [facility] Last Admin: 07/08/22 14:23 Dose: Not Given Hydroxyzine HCl (Hydroxyzine Hcl 25 Mg Tablet) 25 mg PO Q6H PRN PRN Reason: Anxiety Ibuprofen (Ibuprofen 800 Mg Tablet) 800 mg PO Q6H PRN PRN Reason: Pain, Moderate (Pain Scale 4-6 Last Admin: 07/06/22 10:06 Dose: 800 mg Latanoprost (Latanoprost 0.005 % Ophth [place] 2.5 Ml Drops) 1 drop EYE-BOTH BEDTIME [facility] Last Admin: 07/07/22 19:45 Dose: 1 drop Levothyroxine Sodium (Levothyroxine Sodium 150 Mcg Tablet) 150 mcg PO DAILY [facility] Last Admin: 07/08/22 14:23 Dose: Not Given Lorazepam (Lorazepam 1 Mg Tablet) 1 mg PO BEDTIME [facility] Last Admin: 07/07/22 19:44 Dose: 1 mg Magnesium Hydroxide (Milk Of Magnesia 30 Ml Oral.Susp) 30 ml PO DAILY PRN PRN Reason: Constipation Melatonin (Melatonin 3 Mg Tablet) 9 mg PO BEDTIME PRN PRN Reason: insomnia Multivitamins/Vitamin C (Multivitamin Tablet) 1 tab PO DAILY [facility] Last Admin: 07/08/22 14:23 Dose: Not Given Nicotine (Nicotine 7 Mg Patch.Td24) 7 mg TRANSDERMA DAILY PRN PRN Reason: nicotine cravings Nicotine Polacrilex (Nicotine Polacrilex 2 Mg Gum) 2 mg BUCCAL Q2H PRN PRN Reason: smoking craving Last Admin: 06/18/22 14:22 Dose: 2 mg Olanzapine (Olanzapine 7.5 Mg Tablet) 15 mg PO BEDTIME [facility] Last Admin: 07/07/22 19:44 Dose: 15 mg Quetiapine Fumarate (Quetiapine Fumarate 25 Mg Tablet) 12.5 mg PO Q6H PRN PRN Reason: Anxiety Last Admin: 06/29/22 21:00 Dose: 12.5 mg Vitamin D (Cholecalciferol (Vitamin D3) 10 Mcg Tablet) 10 mcg PO DAILY [facility] Last Admin: 07/08/22 14:23 Dose: Not Given Allergies Allergies Allergy/AdvReac Type Severity Reaction Status Date / Time risperidone AdvReac Intermediate Hypotension Verified 06/16/22 15:00 fluoxetine [From Prozac] AdvReac Agitated Verified 06/16/22 15:00 Assessment & Plan Assessment & Plan (1) Schizo-affective schizophrenia, chronic condition with acute exacerbation: Status: Acute Code(s): F25.9 - Schizoaffective disorder, unspecified (2) Essential (primary) hypertension: Status: Acute Code(s): I10 - Essential (primary) hypertension (3) Hypothyroid: Status: Acute Code(s): E03.9 - Hypothyroidism, unspecified Plan 71 yo female w/ paranoia 06/23 says not on gabapentin for years; may consider discontinuing 06/24/22: MVI i tab daily Vitamin D3 10 mg daily 06/25/2022 Continue olanzapine try in get a better idea of patient's psychiatric history and specific behavior that caused admission Discontinue Gabapentin-pt reports she last took it in ~2006 and it was not helpful and precipitated a weight gain. 06/26/2022 Continue olanzapine encourage treatment acceptance trying clarify patient's history 06/27/2022 Continue olanzapine 10 mg at bedtime patient has limited insight denies psychiatric illness need for antipsychotics and apparently this has been an issue for many years. Although she had been at [facility] for over 6 months a probate [place] was not obtained nor was she on a long-acting injectable which would seem to be Potentially problematic patient does have DMH 06/28/2022 Patient continues to be psychotic with paranoid concerns somewhat anxious and dysphoric limited insight. Agreeable to low-dose Seroquel 12.5 mg continue olanzapine 10 mg at bedtime. Coordinate care with transfer back to [facility] when stable. Patient would benefit from a long-acting injectable but is resistant to this recommendation 06/29 continue current medications. Increase olanzapine to 15mg po qhs. may be better than adding low dose seroquel 06/30 pt refusing her medications, paranoid 07/01 pt refusing PO meds 07/02 pt refusing PO meds 07/03 the patient took Zyprexa last night and we discussed discharge planning. She is fully aware that she needs to be fully compliant in order to discharge her. We are adding Ativan 1 mg p.o. q.h.s. and p.r.n. 0.5 b.i.d. also, oxycodone 5 mg p.o. q.h.s. for severe pain. 07/04 continue same treatment 07/05 continue with same treatment 07/06 continue same treatment 07/07 continue same treatment 07/08 Continue current treatment plan. Reason for contiued inpatient stay Substantial Risk for: inability to function and rapid decompensation Time Spent With Patient Time: Total time managing care of this patient today ____ minutes.
[2022-07-08 20:43] VITALS: BP 137/63; PULSE 57; RESP 17; TEMP 36.6; O2SAT 95
[2022-07-08] MEDS: LORazepam 1 MG TABLET PO (20:47)
[2022-07-08] MEDS: Latanoprost 0.005 % Ophth Sol 2.5 ML DROPS 1 DROP EYE-BOTH (20:47)
[2022-07-08] MEDS: OLANZapine 7.5 MG TABLET 15 MG PO (20:47)
[2022-07-09 06:00] VITALS: BP 171/67; PULSE 62; RESP 16; TEMP 36.6; O2SAT 97
[2022-07-09] MEDS: Levothyroxine Sodium 150 MCG TABLET PO (09:05)
[2022-07-09] MEDS: Cholecalciferol (Vitamin D3) 10 MCG TABLET PO (09:05)
[2022-07-09] MEDS: Ferrous Sulfate 324 MG TABLET.DR PO (09:05)
[2022-07-09] MEDS: amLODIPine Besylate 2.5 MG TABLET PO (09:05)
[2022-07-09] MEDS: Multivitamin TABLET 1 TAB PO (09:06)
--- NOTE | 2022-07-09 15:10 | P.PNPSI_ITS ---
Subjective Subjective Date of Service: 07/09/22 Reason For Visit: psychosis hallucinations threatening behavior Interim History: Nursing report she has been compliant with medications. She tells this examiner today that she doesn't think she needs antipsychotics and that they make her de pressed and sleepy. In spite of this she has been taking her medications. She was seen in her room. She says she is feeling better since admission. She is seen in the milieu more. She is eating and sleeping well. She denied AVH. Denies SI. Mental Status Exam Mental Status Exam Narrative: Appearance: casually groomed, fair hygiene, in NAD Behavior: guarded Psychomotor: no overt agitation or retardation noted Speech: mostly clear, regular rate in response, spontaneous TP: more linear TC: paranoia about her identity being stolen, and medication here not the ones Mood: depressed Affect: guarded, and constricted AH/VH: denies but appears internally preoccupied Delusions: paranoid delusions Insight/judgment: poor x 2. Memory/cog: alert, oriented to place, not situation Patient Appearance: Well Grooomed and Appropriate Patient Orientation: Person Level of Consciousness: Awake and Appropriate Patient Behavior: Guarded and Passive Mood Description: Withdrawn Affect Description: Constricted Patient Cognition Impaired: Yes Ability to Follow Directions: Good Speech Pattern: Clear Memory Description: Episodic Impaired Diagnostics Vital Signs (24Hr): Vital Signs - 24 hr 07/08/22 20:43 07/09/22 06:00 Temperature 97.8 F 97.9 F Pulse Rate 57 62 Respiratory Rate 17 16 Blood Pressure 137/63 171/67 H Pulse Oximetry 95 97 Oxygen Delivery Method Room Air Room Air Labs Results: 06/18/22 14:16 Medications Medications Current Medications Acetaminophen (Acetaminophen 325 Mg Tablet) 650 mg PO Q6H PRN PRN Reason: Headache/Pain Mild Scale (1-3) Last Admin: 06/30/22 18:33 Dose: 650 mg Al Hydroxide/Mg Hydroxide (Magnesium Hydrox/Alum Hydrox 30 Ml Oral.Susp) 30 ml PO Q6H PRN PRN Reason: Heartburn/Nausea Amlodipine Besylate (Amlodipine Besylate 2.5 Mg Tablet) 2.5 mg PO DAILY JAVIER; Protocol Last Admin: 07/09/22 09:05 Dose: 2.5 mg Ferrous Sulfate (Ferrous Sulfate 324 Mg Tablet.) 324 mg PO DAILY [facility] Last Admin: 07/09/22 09:05 Dose: 324 mg Hydroxyzine HCl (Hydroxyzine Hcl 25 Mg Tablet) 25 mg PO Q6H PRN PRN Reason: Anxiety Ibuprofen (Ibuprofen 800 Mg Tablet) 800 mg PO Q6H PRN PRN Reason: Pain, Moderate (Pain Scale 4-6 Last Admin: 07/06/22 10:06 Dose: 800 mg Latanoprost (Latanoprost 0.005 % Ophth [place] 2.5 Ml Drops) 1 drop EYE-BOTH BEDTIME [facility] Last Admin: 07/08/22 20:47 Dose: 1 drop Levothyroxine Sodium (Levothyroxine Sodium 150 Mcg Tablet) 150 mcg PO DAILY [facility] Last Admin: 07/09/22 09:05 Dose: 150 mcg Magnesium Hydroxide (Milk Of Magnesia 30 Ml Oral.Susp) 30 ml PO DAILY PRN PRN Reason: Constipation Melatonin (Melatonin 3 Mg Tablet) 9 mg PO BEDTIME PRN PRN Reason: insomnia Multivitamins/Vitamin C (Multivitamin Tablet) 1 tab PO DAILY [facility] Last Admin: 07/09/22 09:06 Dose: 1 tab Nicotine (Nicotine 7 Mg Patch.Td24) 7 mg TRANSDERMA DAILY PRN PRN Reason: nicotine cravings Nicotine Polacrilex (Nicotine Polacrilex 2 Mg Gum) 2 mg BUCCAL Q2H PRN PRN Reason: smoking craving Last Admin: 06/18/22 14:22 Dose: 2 mg Olanzapine (Olanzapine 7.5 Mg Tablet) 15 mg PO BEDTIME [facility] Last Admin: 07/08/22 20:47 Dose: 15 mg Quetiapine Fumarate (Quetiapine Fumarate 25 Mg Tablet) 12.5 mg PO Q6H PRN PRN Reason: Anxiety Last Admin: 06/29/22 21:00 Dose: 12.5 mg Vitamin D (Cholecalciferol (Vitamin D3) 10 Mcg Tablet) 10 mcg PO DAILY [facility] Last Admin: 07/09/22 09:05 Dose: 10 mcg Allergies Allergies Allergy/AdvReac Type Severity Reaction Status Date / Time risperidone AdvReac Intermediate Hypotension Verified 06/16/22 15:00 fluoxetine [From Prozac] AdvReac Agitated Verified 06/16/22 15:00 Assessment & Plan Assessment & Plan (1) Schizo-affective schizophrenia, chronic condition with acute exacerbation: Status: Acute Code(s): F25.9 - Schizoaffective disorder, unspecified (2) Essential (primary) hypertension: Status: Acute Code(s): I10 - Essential (primary) hypertension (3) Hypothyroid: Status: Acute Code(s): E03.9 - Hypothyroidism, unspecified Plan 71 yo female w/ paranoia 06/23 says not on gabapentin for years; may consider discontinuing 06/24/22: MVI i tab daily Vitamin D3 10 mg daily 06/25/2022 Continue olanzapine try in get a better idea of patient's psychiatric history and specific behavior that caused admission Discontinue Gabapentin-pt reports she last took it in ~2006 and it was not helpful and precipitated a weight gain. 06/26/2022 Continue olanzapine encourage treatment acceptance trying clarify patient's history 06/27/2022 Continue olanzapine 10 mg at bedtime patient has limited insight denies psychiatric illness need for antipsychotics and apparently this has been an issue for many years. Although she had been at [facility] for over 6 months a probate [place] was not obtained nor was she on a long-acting injectable which would seem to be Potentially problematic patient does have DMH 06/28/2022 Patient continues to be psychotic with paranoid concerns somewhat anxious and dysphoric limited insight. Agreeable to low-dose Seroquel 12.5 mg continue olanzapine 10 mg at bedtime. Coordinate care with transfer back to [facility] when stable. Patient would benefit from a long-acting injectable but is resistant to this recommendation 06/29 continue current medications. Increase olanzapine to 15mg po qhs. may be better than adding low dose seroquel 06/30 pt refusing her medications, paranoid 07/01 pt refusing PO meds 07/02 pt refusing PO meds 07/03 the patient took Zyprexa last night and we discussed discharge planning. She is fully aware that she needs to be fully compliant in order to discharge her. We are adding Ativan 1 mg p.o. q.h.s. and p.r.n. 0.5 b.i.d. also, oxycodone 5 mg p.o. q.h.s. for severe pain. 07/04 continue same treatment 07/05 continue with same treatment 07/06 continue same treatment 07/07 continue same treatment 07/08 Continue current treatment plan. 07/09: Emphasized need for adherence to medications in order for DC planning to be successful. Showing ambivalence about Olanzapine today. Reason for contiued inpatient stay Substantial Risk for: inability to function and rapid decompensation Time Spent With Patient Time: Total time managing care of this patient today ____ minutes.
[2022-07-09 18:00] VITALS: BP 145/67; PULSE 67; RESP 16; TEMP 36.6; O2SAT 96
[2022-07-09] MEDS: OLANZapine 7.5 MG TABLET 15 MG PO (21:18)
[2022-07-09] MEDS: Latanoprost 0.005 % Ophth Sol 2.5 ML DROPS 1 DROP EYE-BOTH (21:18)
[2022-07-10] MEDS: QUEtiapine Fumarate 25 MG TABLET 12.5 MG PO (00:45)
[2022-07-10 09:30] VITALS: BP 146/68; PULSE 52; RESP 16; TEMP 36.4; O2SAT 96
--- NOTE | 2022-07-10 09:30 | PM.PSYDC ---
DS: Providers Provider Date of Service: 07/10/22 Date of admission: 06/16/22 14:39 Date of discharge: 07/10/22 Primary care physician: Unknown Physician Consults: 06/16/22 15:00 Consult to Hospitalist Routine Consulting Provider: Hospitalist Reason For Exam: adm physical ckd breast ca htn uti re Attending physician on discharge: Jaylen Chapman DS: Diagnosis Discharge Diagnosis (1) Schizo-affective schizophrenia, chronic condition with acute exacerbation: Status: Acute (2) Essential (primary) hypertension: Status: Acute (3) Hypothyroid: Status: Acute DS: Medications Discharge Medications Home Medications: Home Medications Medication Instructions Recorded Confirmed amlodipine 5 mg tablet 5 mg PO DAILY 06/16/22 06/16/22 cholecalciferol (vitamin D3) 50 50 mcg PO DAILY 06/16/22 06/16/22 mcg (2,000 unit) capsule (Vitamin D3) cranberry 500 mg capsule 500 mg PO BID 06/16/22 06/16/22 diphenhydramine HCl 25 mg capsule 25 mg PO BEDTIME 06/16/22 06/16/22 (Benadryl) ferrous sulfate 324 mg (65 mg 324 mg PO DAILY 06/16/22 06/16/22 iron) tablet,delayed release levothyroxine 150 mcg tablet 150 mcg PO DAILY 06/16/22 06/16/22 lorazepam 0.5 mg tablet 0.5 mg PO BID 06/16/22 06/16/22 melatonin 5 mg tablet 10 mg PO BEDTIME 06/16/22 06/16/22 olanzapine 10 mg tablet 10 mg PO BID 06/16/22 06/16/22 Mental Status Exam Mental Status Exam Patient Appearance: Appropriate Patient Orientation: Person, Place and Situation Level of Consciousness: Awake Patient Behavior: Guarded and Suspicious Mood Description: Calm Affect Description: Constricted Patient Cognition Impaired: Yes Ability to Follow Directions: Good Speech Pattern: Clear Hallucinations: None Delusions: Paranoid Ideation Thought Process: Distracted Thought Content: positive for Hoyt and positive for Circumstantial Judgement: Fair Data Data Completed and Pending Completed studies during hospitalization [Text1]: 06/20/22 11:00 Urine clean catch - Urine dodson top Urine Culture - Final DS: Summary Hospital Course Hospital Course: The patient was transferred from [facility] from [facility] since she was more paranoid. Apparently she had been noncompliant with medications for several months and she decompensated. The patient was admitted for nearly 6 months before of this admission that from [facility]. The patient carries the diagnosis with schizophrenia and she is chronically noncompliant. Please see the HPI note for further details. On admission, the patient was paranoid and denies having a mental illness. She signed herself into with a conditional voluntary but initially she was noncompliant with the Zyprexa that was restarted. We discussed with the patient the conditions of the admission and she agreed to take Zyprexa titrated up to 15 mg p.o. q.h.s. with no evidence of side effects. The patient had been chronically paranoid and she lacks insight into her condition. Even though, the patient was able to participate in some groups, she was future oriented that she wanted to be discharged. Since there were no safety concerns discharge planning was discussed, going back to [facility]. I advised her to be fully compliant with medications but apparently she she wants to change now to Seroquel. I explained her that it can be done over the out patient services. No safety concerns Time spent discussing smoking cessation with patient: 3 to 10 minutes Status at Discharge Functional status at discharge: independent ambulation Overall status at discharge: patient is back to baseline Time Spent with Patient Time attestation: Total time managing care of this patient today __20__ minutes. Time spent: Less than 30 minutes Discharge Plan Discharge Patient Disposition: Xfer to Respite Facility Discharge Diagnosis: Schizoaffective disorder Referrals: [facility] [Other] - 1 Week (Referral for psychiatry placed for follow up. ) [facility] [Other] - 1 Week (Your outreach services with [facility] to resume at discharge and request for new case worker has been made by [facility].) Department of Mental [facility] [Other] - 1 Week ([facility] to follow up with you and [employer] [employer] on planning for housing. ) [facility] [Other] - 07/10/22 (Transfer back to [facility] respite bed at [facility] and [facility] [facility] and [facility] to address housing with you. ) Physician,Unknown J [Primary Care Provider] - 1 Week Discharge Medications: New multivitamin [Daily-Adeel] Tablet 1 tab PO DAILY 30 Days Qty: 30 0RF quetiapine 25 mg Tablet 12.5 mg PO Q6H PRN (Reason: Anxiety) 30 Days Qty: 30 0RF latanoprost 0.005 % Drops 1 drp ophthalmic (eye) BEDTIME 30 Days Qty: 1 0RF ibuprofen 800 mg Tablet 800 mg PO Q6H PRN (Reason: Pain, Moderate (Pain Scale 4-6) 30 Days Qty: 60 0RF amlodipine 2.5 mg Tablet 2.5 mg PO DAILY 30 Days Qty: 30 0RF Protocol: Hold for SBP< HOLD for SBP < : 90 olanzapine 7.5 mg Tablet 15 mg PO BEDTIME 30 Days Qty: 60 0RF cholecalciferol (vitamin D3) [Vitamin D3] 10 mcg (400 unit) Tablet 10 mcg PO DAILY 30 Days Qty: 30 0RF Continued levothyroxine 150 mcg Tablet 150 mcg PO DAILY 30 Days Qty: 30 0RF cranberry 500 mg Capsule 500 mg PO BID 30 Days Qty: 60 0RF Rx Instructions: administer with meals ferrous sulfate 324 mg (65 mg iron) Tablet,Delayed Release (Dr/Ec) 324 mg PO DAILY 30 Days Qty: 30 0RF melatonin 5 mg Tablet 10 mg PO BEDTIME 30 Days Qty: 60 0RF Discontinued olanzapine 10 mg Tablet 10 mg PO BID amlodipine 5 mg Tablet 5 mg PO DAILY lorazepam 0.5 mg Tablet 0.5 mg PO BID diphenhydramine HCl [Benadryl] 25 mg Capsule 25 mg PO BEDTIME cholecalciferol (vitamin D3) [Vitamin D3] 50 mcg (2,000 unit) Capsule 50 mcg PO DAILY Discharge Orders: Discharge Order (Routine); Ordered 07/10/22 Ordered By: Jaylen Chapman Diet: Advance to usual diet Activity on Discharge: As tolerated Stand Alone Forms: Patient Portal Discharge page Care Plan Goals: Care plan goals achieved Health Concerns: Continue treatment by primary care physician Plan of Treatment: Continue medication management by the outpatient providers. Assessment: Elderly female with a long history of schizoaffective disorder admitted for noncompliance. The patient does not have insight into her condition but there were no safety concerns at this moment.
[2022-07-10] MEDS: Levothyroxine Sodium 150 MCG TABLET PO (09:34)
[2022-07-10] MEDS: Ferrous Sulfate 324 MG TABLET.DR PO (09:34)
[2022-07-10] MEDS: Multivitamin TABLET 1 TAB PO (09:35)
[2022-07-10] MEDS: Cholecalciferol (Vitamin D3) 10 MCG TABLET PO (09:35)
[2022-07-10] MEDS: amLODIPine Besylate 2.5 MG TABLET PO (09:35)
== END 2022-07-10 13:45 | DRG 885 ==
PROVIDERS: Physician Assistant; Psychiatry & Neurology Psychiatry; Admitting Provider Psychiatry & Neurology Psychiatry; Visit Provider Psychiatry & Neurology Psychiatry
DX: F25.9 Schizoaffective disorder, unspecified (principal); N18.4 Chronic kidney disease, stage 4 (severe); M79.7 Fibromyalgia; I12.9 Hypertensive chronic kidney disease with stage 1 through stage 4 chronic kidney disease, or unspecified chronic kidney disease; E03.9 Hypothyroidism, unspecified; H40.9 Unspecified glaucoma; Z85.3 Personal history of malignant neoplasm of breast; Z85.89 Personal history of malignant neoplasm of other organs and systems; Z92.3 Personal history of irradiation; Z88.8 Allergy status to other drugs, medicaments and biological substances; Z79.890 Hormone replacement therapy; Z79.899 Other long term (current) drug therapy
CPT/HCPCS: 36415; 80048; 81001; 84439; 84443; 87086